=== PATIENT | female | born 1990 | race Caucasian/White ===

== ENCOUNTER 2019-09-03 15:00 | Emergency (ER) | payer BC, SELFPAY ==
[2019-09-03 15:10] VITALS: BP 149/81; PULSE 67; RESP 18; TEMP 37; O2SAT 97; BMI 37.3
[2019-09-03 15:54] LABS: Add Urine Microscopic? NO
[2019-09-03 16:04] LABS: Bilirubin Urine Neg (NEGATIVE); Blood Urine Neg (Negative); Glucose Urine UA Norm (Normal); HCG Qualitative Urine. Negative (Negative); Ketones Urine 2+ (Negative); Nitrate Urine Negative (Negative); Protein Urine Neg (Negative); Sulfosalicylic Acid Urine Negative (Negative); Urine Appearance Clear (CLEAR); Urine Color Yellow (Yellow); Urobilinogen Urine Neg (Negative); pH Urine 5 (5-7)
[2019-09-03 16:05] LABS: Leukocyte Esterase Urine Negative (Negative)
[2019-09-03 16:11] LABS: Basophils % 0.2 %; Eosinophils # 0.1 10^3/uL (0.0-0.8); Eosinophils % 1.4 %; Hemoglobin 14.5 g/dL (11.5-15.3); Lymphocytes # 2.5 10^3/uL (0.8-4.8); Lymphocytes % 29.1 %; Mean Corpuscular Volume 90.9 fL (81-99); Mean Platelet Volume 9.2 fL (7.4-10.4); Monocytes # 0.6 10^3/uL (0.2-0.9); Monocytes % 6.8 %; Neutrophils # 5.4 10^3/uL (1.8-7.7); Neutrophils % 62.2 %; Nucleated Red Blood Cells % 0 %; Platelet Count 298 10^3/cmm (130-400); Red Blood Count 4.84 10^6/uL (4.1-5.3); Red Cell Distribution Width 13.2 % (12.1-15.1); White Blood Count 8.7 10^3/uL (4.0-10.0)
[2019-09-03 16:12] LABS: Amphetamines Screen Urine Negative (Negative); Barbiturates Screen Urine Negative (Negative); Benzodiazepines Screen Urine Negative (Negative); Cocaine Screen Urine Negative (Negative); Opiate Screen Urine Negative (Negative); PCP Screen Urine Negative (Negative); THC Screen Urine Negative (Negative)
[2019-09-03 16:47] LABS: Alanine Aminotransferase 18 U/L (0-33); Albumin Level 4.3 g/dL (3.5-5.2); Alkaline Phosphatase 77 IU/L (35-105); Anion Gap 17.8 (5-19); Aspartate Amino Transferase 18 U/L (0-32); Blood Urea Nitrogen 11 mg/dL (6-20); Carbon Dioxide 19 mmol/L (22-29); Chloride 104 mmol/L (98-107); Globulin 2.8 g/dL (1.3-4.6); Glucose 92 mg/dL (65-115); Osmolality Calculated 280 mOsm/kg (285-295); Potassium 3.8 mmol/L (3.5-5.1); Sodium 137 mmol/L (136-145); Thyroid Stimulating Hormone 0.95 uIU/mL (0.27-4.20); Total Bilirubin 0.3 mg/dL (0.15-1.2); Total Protein 7.1 g/dL (6.6-8.7)
[2019-09-03 16:49] LABS: Acetaminophen < 5.0 ug/mL (10-30); Alcohol Level < 10 mg/dL (0-10); Salicylate < 0.3 mg/dL (3-10)
--- NOTE | 2019-09-03 17:54 | W.ED.AMS ---
HPI - Altered Mental Status General: Chief Complaint: Altered Mental Status Stated Complaint: AMS/STARTED NEW MED Time Seen by Provider: 09/03/19 15:32 Source: patient and other (friend) Mode of arrival: ambulatory Limitations: altered mental status History of Present Illness: HPI narrative: The patient is a 28-year-old female patient with a history of depression who was started on Prozac about a week ago. At about the same time she also started taking truvision, a weight loss supplement which contains caffeine and other ingredients. She states that she is taking the extra strength one which is apparently more powerful. She denies recreational drug use. She denies any recent illness, no headache, no vomiting, no fever, no sick contacts. She has not had similar symptoms in the past. The patient appears distracted but it is easy to get her attention. Her coworkers noticed this and so called for her friend to bring her to the hospital for evaluation. The patient states that she has not slept in 2 days, possibly from the diet supplements MD complaint: confusion Onset (ago): hour(s) Associated symptoms: Reports depression; Deny auditory hallucinations, visual hallucinations, delusions, homicidal ideation, racing thoughts or suicidal ideation Review of Systems General: Reports: 10 or more systems reviewed and unremarkable except in HPI and below Const: Denies: fever(s), chills or body aches Eyes: Denies: change in vision or blurry vision ENMT: Denies: throat pain, enlarged tonsils, odynophagia, hoarseness, mouth pain or swelling of lips/tongue Card: Denies: chest pain, palpitations, irregular heart rhythm, edema or swelling of feet/ankles Resp: Denies: dyspnea, productive cough or non-productive cough GI: Denies: abdominal pain, nausea or vomiting : Denies: flank pain, difficulty voiding, dysuria, urinary frequency, urinary urgency or urinary hesitancy Musc: Denies: neck pain, back pain or extremity swelling Skin/Breast: Denies: rash, pruritus or erythema Neuro: Reports: confusion; Denies: headache(s), numbness in extremities or weakness in extremities Psych: Reports: depression; Denies: visual hallucinations, auditory hallucinations, suicidal ideation or homicidal ideation Endo: Denies: polyuria, polydipsia or tired all the time PFSH ED PFSH: Social History Smoking and tobacco status: current every day smoker Female Reproductive History: Date of last menstrual period: 08/03/19 Physical Exam Const: COMMON NORMALS: no acute distress, average body habitus, patient oriented x3, no limitations, healthy appearing, alert and well nourished HENMT: COMMON NORMALS: normocephalic, atraumatic and moist oral mucous membranes HEAD & SCALP: normocephalic and atraumatic Eye: COMMON NORMALS: Equal, round and reactive pupils present, EOMs intact bilaterally, conjunctivae normal and no scleral icterus CONJUNCTIVA: Yes conjunctivae normal PUPIL: Yes Equal, round and reactive pupils present Neck/C-Spine: COMMON NORMALS: full ROM, supple, no meningeal signs, no JVD and No carotid bruits Chest: COMMONS NORMALS: normal inspection of the chest and normal palpation of entire chest wall Resp: COMMON NORMALS: normal respiratory effort, No retractions, No use of accessory muscles, clear to auscultation bilaterally and percussion normal AUSCULTATION: clear to auscultation bilaterally PERCUSSION: percussion normal Cardio: COMMON NORMALS: no JVD, regular rate, regular rhythm, S1 normal heart sound present, S2 normal heart sound present, No gallops present (Cardio), No clicks present (Cardio), No murmurs present (Cardio), No rub (Cardio) and Peripheral pulses 2+ throughout RATE: regular rate RHYTHM: regular rhythm HEART SOUNDS: S1 normal heart sound present and S2 normal heart sound present PERIPHERAL PULSES: Peripheral pulses 2+ throughout GI: COMMON NORMALS: Normal to inspection, nondistended, normoactive bowel sounds present, Soft to palpation, non-tender, No hepatosplenomegaly present, no masses and no bruits PALPATION: Yes Soft to palpation and Yes No hepatosplenomegaly present : COMMON NORMALS: Yes no CVA tenderness BLADDER/KIDNEY EXAM: Yes no CVA tenderness Back/Pelvis: COMMON NORMALS: no CVA tenderness Extremity: COMMON NORMALS: normal to inspection, full ROM, capillary refill normal, no calf tenderness and no pedal edema Neuro: COMMON NORMALS: patient oriented x3 SENSORIUM/ORIENTATION: Yes alert MENINGEAL SIGNS: Yes no meningeal signs Psych: THOUGHT CONTENT: No delusions Skin: COMMON NORMALS: no rashes or lesions noted, no wounds, turgor normal, no jaundice, no petechiae and no mottling GENERAL SKIN EXAM: no rashes or lesions noted and turgor normal Course Reevaluation(s): Reevaluation #1: Patient seen. Symptoms have resolved completely. The patient is alert and oriented. She states that she cannot remember anything from when she got to work today. She does remember that she has not slept in 2 days. Discussed her lab findings with her. Essentially normal. She is advised to stop taking the diet supplements, Truvision. She is also advised to follow-up with her primary care provider as soon as she can get in to see him within 3 days. She voiced understanding and is in agreement with the plan Time: 17:45 Vital Signs: Vital signs: Vital Signs Temperature 98.6 F 09/03/19 15:10 Pulse Rate 71 09/03/19 18:14 Respiratory Rate 18 09/03/19 18:14 Blood Pressure 114/88 09/03/19 18:14 Pulse Oximetry 98 09/03/19 18:14 MDM - Altered Mental Status MDM Narrative: Medical decision making narrative: 28-year-old female patient who presents to the emergency department with confusion. Evaluation is unremarkable and she appears to have delirium induced by sleep deprivation. She may have been sleep deprived secondary to her dietary supplements. She is advised to stop the dietary supplements and to follow-up with her primary care provider. This may also be an adverse reaction to her antidepressant. Medical Records: Attestation: I reviewed the patient's medical records. Lab Data: Attestation: I reviewed the patient's lab results. Labs: Lab Results 09/03/19 09/03/19 09/03/19 Range/Units 15:50 15:50 15:50 WBC (4.0-10.0) 10^3/ uL RBC (4.1-5.3) 10^6/u L Hgb (11.5-15.3) g/dL Hct (37.0-47.0) % MCV (81-99) fL MCH (28.0-34.0) pg MCHC (30.0-36.0) g/dL RDW (12.1-15.1) % Plt Count (130-400) 10^3/c mm MPV (7.4-10.4) fL Neut % (Auto) % Lymph % (Auto) % Trinity % (Auto) % Eos % (Auto) % Baso % (Auto) % Neut # (Auto) (1.8-7.7) 10^3/u L Lymph # (Auto) (0.8-4.8) 10^3/u L Trinity # (Auto) (0.2-0.9) 10^3/u L Eos # (Auto) (0.0-0.8) 10^3/u L Baso # (Auto) (0.0-0.1) 10^3/u L Nucleated RBC % (a uto) % Nucleated RBCs # /100WBC Sodium (136-145) mmol/L Potassium (3.5-5.1) mmol/L Chloride (98-107) mmol/L Carbon Dioxide (22-29) mmol/L Anion Gap (5-19) BUN (6-20) mg/dL Creatinine (0.5-0.9) mg/dL GFR Calculation (90-130) mL/min Glucose (65-115) mg/dL Calculated Osmolal ity (285-295) mOsm/k g Calcium (8.5-10.5) mg/dL Total Bilirubin (0.15-1.2) mg/dL AST (0-32) U/L ALT (0-33) U/L Alkaline Phosphata se (35-105) IU/L Total Protein (6.6-8.7) g/dL Albumin (3.5-5.2) g/dL Globulin (1.3-4.6) g/dL TSH (0.27-4.20) uIU/ mL HCG, Qual Negative (Negative) Urine Color Yellow (Yellow) Urine Appearance Clear (CLEAR) Urine pH 5 (5-7) Ur Specific Gravit y 1.020 (1.005-1.030) Urine Protein Neg (Negative) Urine Glucose (UA) Norm (Normal) Urine Ketones 2+ H (Negative) Urine Blood Neg (Negative) Urine Nitrate Negative (Negative) Urine Bilirubin Neg (NEGATIVE) Prot Sulfosalicyli c Acd Negative (Negative) Urine Urobilinogen Neg (Negative) mg/dL Ur Leukocyte Esther ase Negative (Negative) Salicylates (3-10) mg/dL Urine Opiates Scre en Negative (Negative) ng/mL Acetaminophen (10-30) ug/mL Ur Barbiturates Sc reen Negative (Negative) ng/mL Ur Phencyclidine S crn Negative (Negative) ng/mL Ur Amphetamines Sc reen Negative (Negative) ng/mL U Benzodiazepines Scrn Negative (Negative) ng/mL Urine Cocaine Scre en Negative (Negative) ng/mL U Marijuana (THC) Screen Negative (Negative) ng/mL Ethyl Alcohol (0-10) mg/dL 09/03/19 09/03/19 Range/Units 16:05 16:05 WBC 8.7 (4.0-10.0) 10^3/ uL RBC 4.84 (4.1-5.3) 10^6/u L Hgb 14.5 (11.5-15.3) g/dL Hct 44.0 (37.0-47.0) % MCV 90.9 (81-99) fL MCH 30.0 (28.0-34.0) pg MCHC 33.0 (30.0-36.0) g/dL RDW 13.2 (12.1-15.1) % Plt Count 298 (130-400) 10^3/c mm MPV 9.2 (7.4-10.4) fL Neut % (Auto) 62.2 % Lymph % (Auto) 29.1 % Trinity % (Auto) 6.8 % Eos % (Auto) 1.4 % Baso % (Auto) 0.2 % Neut # (Auto) 5.4 (1.8-7.7) 10^3/u L Lymph # (Auto) 2.5 (0.8-4.8) 10^3/u L Trinity # (Auto) 0.6 (0.2-0.9) 10^3/u L Eos # (Auto) 0.1 (0.0-0.8) 10^3/u L Baso # (Auto) 0.0 (0.0-0.1) 10^3/u L Nucleated RBC % (a uto) 0 % Nucleated RBCs # 0.0 /100WBC Sodium 137 (136-145) mmol/L Potassium 3.8 (3.5-5.1) mmol/L Chloride 104 (98-107) mmol/L Carbon Dioxide 19 L (22-29) mmol/L Anion Gap 17.8 (5-19) BUN 11 (6-20) mg/dL Creatinine 0.5 (0.5-0.9) mg/dL GFR Calculation 148.0 H (90-130) mL/min Glucose 92 (65-115) mg/dL Calculated Osmolal ity 280 L (285-295) mOsm/k g Calcium 9.0 (8.5-10.5) mg/dL Total Bilirubin 0.3 (0.15-1.2) mg/dL AST 18 (0-32) U/L ALT 18 (0-33) U/L Alkaline Phosphata se 77 (35-105) IU/L Total Protein 7.1 (6.6-8.7) g/dL Albumin 4.3 (3.5-5.2) g/dL Globulin 2.8 (1.3-4.6) g/dL TSH 0.95 (0.27-4.20) uIU/ mL HCG, Qual (Negative) Urine Color (Yellow) Urine Appearance (CLEAR) Urine pH (5-7) Ur Specific Gravit y (1.005-1.030) Urine Protein (Negative) Urine Glucose (UA) (Normal) Urine Ketones (Negative) Urine Blood (Negative) Urine Nitrate (Negative) Urine Bilirubin (NEGATIVE) Prot Sulfosalicyli c Acd (Negative) Urine Urobilinogen (Negative) mg/dL Ur Leukocyte Esther ase (Negative) Salicylates < 0.3 L (3-10) mg/dL Urine Opiates Scre en (Negative) ng/mL Acetaminophen < 5.0 L (10-30) ug/mL Ur Barbiturates Sc reen (Negative) ng/mL Ur Phencyclidine S crn (Negative) ng/mL Ur Amphetamines Sc reen (Negative) ng/mL U Benzodiazepines Scrn (Negative) ng/mL Urine Cocaine Scre en (Negative) ng/mL U Marijuana (THC) Screen (Negative) ng/mL Ethyl Alcohol < 10 (0-10) mg/dL Discharge Plan Discharge Patient Disposition: Home, Self-Care Clinical Impression: Sleep deprivation, Delirium Condition: Stable Prescriptions: Continued fluoxetine 20 mg capsule 20 mg PO DAILY RF: 0 Discharge Orders: Discharge Order (Routine); Ordered 09/03/19 Ordered By: Meir Michaels Referrals: Rafy Klein MD [Family Provider] - 1-3 days Patient Instructions: Acute Delirium (ED) Activity Restrictions/Additional Instructions: Return for any new or worsening symptoms. Follow-up with your primary care provider as soon as you can get in. Stop taking the truvision as it may be responsible for your lack of sleep, and I believe your lack of sleep is responsible for your symptoms that you had today. Drink plenty of fluids to keep well-hydrated. Discharge Date/Time: 09/03/19 18:14 Coding Level of Care Code ED Computer Animator for Zoila Andrade
[2019-09-03 18:14] VITALS: BP 114/88; PULSE 71; RESP 18; O2SAT 98
== END 2019-09-03 18:14 | disposition home or self-care (01) ==
PROVIDERS: Emergency Provider Family Medicine; Family Provider Family Medicine
DX: Z72.820 Sleep deprivation (principal); R41.0 Disorientation, unspecified; F17.210 Nicotine dependence, cigarettes, uncomplicated
CPT/HCPCS: 12345; 36415; 80053; 80306; 80307; 81003; 81025; 84443; 85025; 99282

== ENCOUNTER 2020-11-21 14:00 | Emergency (ER) | payer BC, MEDICAID, SELFPAY ==
[2020-11-21 14:25] VITALS: BP 119/79; PULSE 76; RESP 19; TEMP 36.7; O2SAT 94
[2020-11-21 14:47] LABS: Bilirubin Urine Neg (Negative); Blood Urine Trace (Negative); Glucose Urine UA Norm (Normal); Ketones Urine Negative (Negative); Nitrate Urine Negative (Negative); Protein Urine Neg (Negative); Specific Gravity, Urine 1.015 (1.005-1.030); Urine Appearance Clear (CLEAR); Urine Color Straw (Yellow); pH Urine 5 (5-7)
[2020-11-21 14:48] LABS: Add Urine Culture? No; Bacteria Urine 1+ /hpf; Leukocyte Esterase Urine Negative (Negative); Mucus Urine TRACE /hpf; RBC Urine 0-4 /hpf (0-2); Squamous Epithelial Cell Urine 0-4 /hpf (0-5); Urobilinogen Urine Norm (Negative)
[2020-11-21 19:33] LABS: Basophils % 0.3 %; Eosinophils # 0.2 10^3/uL (0.0-0.8); Eosinophils % 2.4 %; Hematocrit 43.4 % (37.0-47.0); Hemoglobin 14.3 g/dL (11.5-15.3); Lymphocytes # 2.9 10^3/uL (0.8-4.8); Lymphocytes % 30.7 %; Mean Corpuscular HGB Conc 32.9 g/dL (30.0-36.0); Mean Corpuscular Hemoglobin 28.7 pg (28.0-34.0); Mean Corpuscular Volume 87.1 fl (81-99); Mean Platelet Volume 8.7 fL (7.4-10.4); Monocytes # 0.5 10^3/uL (0.2-0.9); Monocytes % 5.3 %; Neutrophils # 5.82 10^3/uL (1.8-7.7); Nucleated Red Blood Cells % 0 %; Platelet Count 313 10^3/cmm (130-400); Red Blood Count 4.98 10^6/uL (4.1-5.3); Red Cell Distribution Width 13.2 % (12.1-15.1); White Blood Count 9.6 10^3/uL (4.0-10.0)
--- NOTE | 2020-11-21 19:33 | W.ED.FEMALGU ---
HPI - Female Genitourinary General: Chief complaint: Urogenital-Female Stated complaint: positive test, cramping, bleeding Time Seen by Provider: 11/21/20 19:22 History of Present Illness: HPI Narrative: Patient comes in today for complaints of vaginal bleeding. Patient is about 6 to 7 weeks . Patient found out she was last week with a home test. Patient reports she started cramping last night and then started having some bleeding this morning. Patient reports bleeding was heavy at first but has lightened up. Patient does report bleeding as red. Patient does have a history of prior miscarriages. Patient has had 5 miscarriages and one live with a total of 6 pregnancies. Patient appears alert oriented and in no acute distress. MD elicited complaint: vaginal bleeding Date of Last Menstrual Period: 10/02/20 Review of Systems General: Reports: 10 or more systems reviewed and unremarkable except in HPI and below : Reports: vaginal bleeding PFSH ED PFSH: Social History Smoking and tobacco status: current every day smoker Female Reproductive History: Date of last menstrual period: 10/02/20 Physical Exam Const: COMMON NORMALS: no acute distress and patient oriented x3 GENERAL APPEARANCE: cooperative HENMT: COMMON NORMALS: normocephalic, TM's normal bilaterally and Normal external nose present HEAD & SCALP: normal to inspection and normocephalic NOSE: Normal external nose present TYMPANIC MEMBRANE: TM's normal bilaterally MOUTH: Normal oral and palatal mucosa present THROAT: posterior oropharynx normal Eye: GENERAL EYE: appearance normal, both eyes and all related structures Neck/C-Spine: COMMON NORMALS: full ROM Lymph: LYMPHATIC: no lymphadenopathy noted Chest: COMMONS NORMALS: normal inspection of the chest Resp: COMMON NORMALS: normal respiratory effort EFFORT & INSPECTION: Yes able to speak in complete sentences Cardio: COMMON NORMALS: regular rate and regular rhythm RATE: regular rate RHYTHM: regular rhythm GI: COMMON NORMALS: non-tender : COMMON NORMALS: Yes no CVA tenderness BLADDER/KIDNEY EXAM: Yes no CVA tenderness Back/Pelvis: COMMON NORMALS: no CVA tenderness and thoracic and lumbar spine normal to inspection Extremity: COMMON NORMALS: normal to inspection Neuro: COMMON NORMALS: patient oriented x3 and moves all extremities Psych: COMMON NORMALS: mental status grossly normal and cooperative Skin: COMMON NORMALS: no rashes or lesions noted GENERAL SKIN EXAM: no rashes or lesions noted Course Vital Signs: Vital signs: Vital Signs Temperature 98.1 F 11/21/20 14:25 Pulse Rate 76 11/21/20 14:25 Respiratory Rate 19 H 11/21/20 14:25 Blood Pressure 119/79 11/21/20 14:25 Pulse Oximetry 94 11/21/20 14:25 MDM - Female MDM Narrative: Medical decision making narrative: Patient comes in today for complaints of abnormal bleeding. Patient had a positive test 1 week ago. Patient had figured that she was 6 to 7 weeks. Patient reports today had a large clot with tissue in and has had bleeding throughout the day. Patient reports the bleeding has decreased this evening. Patient appears well. Vital signs are normal. Respirations are even lungs are clear to auscultation. Differential diagnosis includes spontaneous miscarriage, UTI, abruptio placentae. hCG level is less than 0.5. Laboratory values otherwise were unremarkable. Reviewed exam with patient with recommendations for monitoring bleeding follow-up as needed. Patient reported understanding and agreed to plan. Lab Data: Labs: Lab Results 11/21/20 11/21/20 11/21/20 Range/Units 14:13 19:25 19:25 WBC 9.6 (4.0-10.0) 10^3/ uL RBC 4.98 (4.1-5.3) 10^6/u L Hgb 14.3 (11.5-15.3) g/dL Hct 43.4 (37.0-47.0) % MCV 87.1 (81-99) fl MCH 28.7 (28.0-34.0) pg MCHC 32.9 (30.0-36.0) g/dL RDW 13.2 (12.1-15.1) % Plt Count 313 (130-400) 10^3/c mm MPV 8.7 (7.4-10.4) fL Neut % (Auto) 61.0 % Lymph % (Auto) 30.7 % Liberty % (Auto) 5.3 % Eos % (Auto) 2.4 % Baso % (Auto) 0.3 % Neut # (Auto) 5.82 (1.8-7.7) 10^3/u L Lymph # (Auto) 2.9 (0.8-4.8) 10^3/u L Liberty # (Auto) 0.5 (0.2-0.9) 10^3/u L Eos # (Auto) 0.2 (0.0-0.8) 10^3/u L Baso # (Auto) 0.0 (0.0-0.1) 10^3/u L Nucleated RBC % (a uto) 0 % Nucleated RBCs # 0.0 /100WBC Sodium 137 (136-145) mmol/L Potassium 3.8 (3.5-5.1) mmol/L Chloride 103 (98-107) mmol/L Carbon Dioxide 23 (22-29) mmol/L Anion Gap 14.8 (5-19) BUN 10 (6-20) mg/dL Glucose 96 (65-115) mg/dL Calcium 8.7 (8.5-10.5) mg/dL Total Bilirubin 0.3 (0.15-1.2) mg/dL AST 18 (0-32) U/L ALT 21 (0-33) U/L Alkaline Phosphata se 94 (35-105) IU/L Total Protein 7.6 (6.6-8.7) g/dL Albumin 4.0 (3.5-5.2) g/dL Globulin 3.6 (1.3-4.6) g/dL Ser , Yaneli i-Qnt 0.50 mIU/mL Urine Color Straw (Yellow) Urine Appearance Clear (CLEAR) Urine pH 5 (5-7) Ur Specific Gravit y 1.015 (1.005-1.030) Urine Protein Neg (Negative) Urine Glucose (UA) Norm (Normal) Urine Ketones Negative (Negative) Urine Blood Trace H (Negative) Urine Nitrate Negative (Negative) Urine Bilirubin Neg (Negative) Urine Urobilinogen Norm (Negative) mg/dL Ur Leukocyte Esther ase Negative (Negative) Urine RBC 0-4 H (0-2) /hpf Urine WBC Not Reportable Ur Squamous Epith Cells 0-4 H (0-5) /hpf Amorphous Sediment Not Reportable Urine Bacteria 1+ H (NONE) /hpf Urine Mucus Trace /hpf Discharge Plan Discharge Patient Disposition: Home Clinical Impression: Spontaneous miscarriage Condition: Stable Prescriptions: No Action fluoxetine 20 mg capsule 20 mg PO DAILY RF: 0 Discharge Orders: Discharge ED (Routine); Ordered 11/21/20 Ordered By: Gutierrez Castaneda Referrals: Rafy Klein MD [Primary Care Provider] - Discharge Diet: Usual diet Discharge Activity: Increase activity as tolerated Patient Instructions: Spontaneous Miscarriage (ED), Opioid Safety Activity Restrictions/Additional Instructions: Home and rest. Monitor bleeding for greater than 1 pad an hour. Monitor for high fever. Drink plenty of water. Follow-up with primary care in next 2 to 3 days for recheck. Coding Level of Care Code ED Security Operations Specialist for Chg Fwd Exam Comprehensive
[2020-11-21 20:10] LABS: Alanine Aminotransferase 21 U/L (0-33); Alkaline Phosphatase 94 IU/L (35-105); Anion Gap 14.8 (5-19); Aspartate Amino Transferase 18 U/L (0-32); Blood Urea Nitrogen 10 mg/dL (6-20); Calcium 8.7 mg/dL (8.5-10.5); Carbon Dioxide 23 mmol/L (22-29); Chloride 103 mmol/L (98-107); Globulin 3.6 g/dL (1.3-4.6); Glomerular Filtration Rate 188.7 mL/min (90-130); Glucose 96 mg/dL (65-115); Osmolality Calculated 283 mOsm/kg (285-295); Potassium 3.8 mmol/L (3.5-5.1); Sodium 137 mmol/L (136-145); Total Bilirubin 0.3 mg/dL (0.15-1.2); Total Protein 7.6 g/dL (6.6-8.7)
[2020-11-21 20:21] VITALS: PULSE 78; RESP 16; O2SAT 98
== END 2020-11-21 20:21 | disposition home or self-care (01) ==
PROVIDERS: Physician Assistant; Emergency Provider Nurse Practitioner Family; PCP Family Medicine
DX: O03.9 Complete or unspecified spontaneous abortion without complication (principal); O99.331 Smoking (tobacco) complicating pregnancy, first trimester; F17.200 Nicotine dependence, unspecified, uncomplicated
CPT/HCPCS: 36415; 80053; 81001; 84702; 85025; 99282

== ENCOUNTER 2021-03-28 15:04 | Emergency (ER) | payer BC, MEDICAID, SELFPAY ==
--- NOTE | 2021-03-28 15:06 | US_ITS ---
WS: [id number] ULTRASOUND PELVIS TECHNIQUE: Transabdominal and transvaginal. CLINICAL INFORMATION: ; L sided pain LMP: 02/08/2021 : No. COMPARISON: None. FINDINGS: Uterus Orientation: Anteverted. Size: 4.8 cm x 8.3 cm x 5.6 cm. Masses: None. Cervix: Normal Endometrium: Thickened Endometrium thickness: 17 mm. Adnexa: Right corpus luteum cyst measuring 1.9 x 1.5 x1.6 cm. Right ovary size: 2.6 cm x 3.5 cm x 3.4 cm. Right ovary volume: 15.9 ccm3. Left ovary size: 1.5 cm x 1.8 cm x 1.8 cm. Left ovary volume: 2.5 ccm3 Free fluid: None. Other findings: None. US/US pelvic with transvaginal IMPRESSION: 1. No visualized intrauterine gestational sac. 2. Thickened endometrium measuring 17 mm. 3. Both ovaries are normal in appearance. Right corpus luteum cyst measuring 1 .9 x 1.5 x1.6 cm. 4. No free fluid in the cul-de-sac.
[2021-03-28 15:18] VITALS: BP 136/84; PULSE 108; RESP 20; TEMP 37.2; O2SAT 99; BMI 50.1
[2021-03-28 16:59] LABS: Basophils % 0.2 %; Eosinophils # 0.1 10^3/uL (0.0-0.8); Eosinophils % 1.3 %; Hematocrit 41.4 % (37.0-47.0); Hemoglobin 13.4 g/dL (11.5-15.3); Lymphocytes # 2.6 10^3/uL (0.8-4.8); Lymphocytes % 27.8 %; Mean Corpuscular HGB Conc 32.4 g/dL (30.0-36.0); Mean Corpuscular Volume 86.6 fl (81-99); Mean Platelet Volume 8.8 fL (7.4-10.4); Monocytes # 0.7 10^3/uL (0.2-0.9); Monocytes % 7.5 %; Neutrophils # 5.95 10^3/uL (1.8-7.7); Neutrophils % 62.8 %; Nucleated Red Blood Cells % 0 %; Platelet Count 389 10^3/cmm (130-400); Red Blood Count 4.78 10^6/uL (4.1-5.3); Red Cell Distribution Width 13.9 % (12.1-15.1); White Blood Count 9.5 10^3/uL (4.0-10.0)
[2021-03-28 17:21] VITALS: BP 132/81; PULSE 100; RESP 16; O2SAT 99
[2021-03-28 17:21] LABS: Alanine Aminotransferase 21 U/L (0-33); Albumin Level 3.9 g/dL (3.5-5.2); Alkaline Phosphatase 80 IU/L (35-105); Anion Gap 17.6 (5-19); Aspartate Amino Transferase 17 U/L (0-32); Blood Urea Nitrogen 8 mg/dL (6-20); Calcium 8.6 mg/dL (8.5-10.5); Carbon Dioxide 19 mmol/L (22-29); Chloride 105 mmol/L (98-107); Globulin 3.2 g/dL (1.3-4.6); Glomerular Filtration Rate 145.9 mL/min (90-130); Glucose 87 mg/dL (65-115); Osmolality Calculated 284 mOsm/kg (285-295); Potassium 3.6 mmol/L (3.5-5.1); Sodium 138 mmol/L (136-145); Total Bilirubin 0.3 mg/dL (0.15-1.2); Total Protein 7.1 g/dL (6.6-8.7)
[2021-03-28 17:31] LABS: Add Urine Microscopic? NO; Charge for UA Resulting for Rev
[2021-03-28 17:39] LABS: Bilirubin Urine Neg (Negative); Blood Urine Neg (Negative); Glucose Urine UA Norm (Normal); Ketones Urine 2+ (Negative); Leukocyte Esterase Urine Negative (Negative); Nitrate Urine Negative (Negative); Protein Urine Neg (Negative); Urine Appearance Clear (CLEAR); Urine Color Yellow (Yellow); Urobilinogen Urine 1 mg/dL (Negative); pH Urine 6.5 (5-7)
--- NOTE | 2021-03-28 18:05 | ED_ITS ---
HPI - Female Genitourinary General: Chief complaint: Urogenital-Female Stated complaint: 7 WKS PREG/VAGINAL & L ABD PAIN Time Seen by Provider: 03/28/21 16:54 History of Present Illness: HPI Narrative: Pt comes in c/o LLQ abd pain which she describes as sharp, constant, worse with movement, started yesterday. States that she thought initially she might have a UTI but that it doesn't hurt to urinate. Denies fever, cough, congestion. States that she had a positive home preg test and that her LMP was about 7 weeks ago. Associated symptoms: Reports abdominal pain; Deny headache(s) or nausea Date of Last Menstrual Period: 10/02/20 Review of Systems Const: Denies: fever(s) or body aches Eyes: Denies: change in vision or blurry vision ENMT: Denies: throat pain or odynophagia Card: Denies: chest pain or palpitations Resp: Denies: dyspnea or productive cough GI: Reports: abdominal pain; Denies: nausea or vomiting : Denies: flank pain or dysuria Musc: Denies: neck pain or back pain Skin/Breast: Denies: rash or pruritus Neuro: Denies: headache(s) or numbness in extremities Psych: Denies: anxiety or change in appetite Endo: Denies: polyuria or excessive sweating PFSH ED PFSH: Social History Smoking and tobacco status: current every day smoker Female Reproductive History: Date of last menstrual period: 10/02/20 Physical Exam Const: COMMON NORMALS: no acute distress, patient oriented x3, healthy appearing and alert HENMT: COMMON NORMALS: normocephalic and atraumatic HEAD & SCALP: normocephalic and atraumatic Eye: COMMON NORMALS: Equal, round and reactive pupils present and EOMs intact bilaterally PUPIL: Yes Equal, round and reactive pupils present Neck/C-Spine: COMMON NORMALS: full ROM and supple Resp: COMMON NORMALS: normal respiratory effort, No retractions and No use of accessory muscles Cardio: COMMON NORMALS: regular rate and regular rhythm RATE: regular rate RHYTHM: regular rhythm GI: COMMON NORMALS: Normal to inspection, nondistended, normoactive bowel sounds present, Soft to palpation and non-tender PALPATION: Yes Soft to palpation Back/Pelvis: COMMON NORMALS: thoracic and lumbar spine normal to inspection and no thoracic nor lumbar tenderness Extremity: COMMON NORMALS: normal to inspection and full ROM Neuro: COMMON NORMALS: patient oriented x3 SENSORIUM/ORIENTATION: Yes alert Psych: COMMON NORMALS: mental status grossly normal and cooperative Skin: COMMON NORMALS: no rashes or lesions noted and no wounds GENERAL SKIN EXAM: no rashes or lesions noted Course ED course: Pt comes in with concerns for LLQ abd pain that started yesterday. States that she is and around 7 weeks along. Denies vaginal bleeding or discharge. will check labs, u/s, and re assess. Reevaluation(s): Reevaluation #1: on reassessment I talked to the pt about the test results. will have her f/u with her OB in two days to repeat the beta quant. will d/c at this time with precautions to return for worsening or changing symptoms. Vital Signs: Vital signs: Vital Signs Temperature 99.0 F 03/28/21 15:18 Pulse Rate 100 03/28/21 17:21 Respiratory Rate 16 03/28/21 17:21 Blood Pressure 132/81 03/28/21 17:21 Pulse Oximetry 99 03/28/21 17:21 MDM - Female Lab Data: Labs: Lab Results 03/28/21 03/28/21 03/28/21 15:59 16:37 16:37 WBC 9.5 10^3/uL 10^3/ uL (4.0-10.0) RBC 4.78 10^6/uL 10^6 /uL (4.1-5.3) Hgb 13.4 g/dL g/dL (11.5-15.3) Hct 41.4 % % (37.0-47.0) MCV 86.6 fl fl (81-99) MCH 28.0 pg pg (28.0-34.0) MCHC 32.4 g/dL g/dL (30.0-36.0) RDW 13.9 % % (12.1-15.1) Plt Count 389 10^3/cmm 10^3 /cmm (130-400) MPV 8.8 fL fL (7.4-10.4) Neut % (Auto) 62.8 % % Lymph % (Auto) 27.8 % % Lares % (Auto) 7.5 % % Eos % (Auto) 1.3 % % Baso % (Auto) 0.2 % % Neut # (Auto) 5.95 10^3/uL 10^3 /uL (1.8-7.7) Lymph # (Auto) 2.6 10^3/uL 10^3/ uL (0.8-4.8) Lares # (Auto) 0.7 10^3/uL 10^3/ uL (0.2-0.9) Eos # (Auto) 0.1 10^3/uL 10^3/ uL (0.0-0.8) Baso # (Auto) 0.0 10^3/uL 10^3/ uL (0.0-0.1) Nucleated RBC % (a uto) 0 % % Nucleated RBCs # 0.0 /100WBC /100W BC Sodium 138 mmol/L mmol/L (136-145) Potassium 3.6 mmol/L mmol/L (3.5-5.1) Chloride 105 mmol/L mmol/L (98-107) Carbon Dioxide 19 mmol/L L mmol/ L (22-29) Anion Gap 17.6 (5-19) BUN 8 mg/dL mg/dL (6-20) Creatinine 0.5 mg/dL mg/dL (0.5-0.9) GFR Calculation 145.9 mL/min H mL /min (90-130) Glucose 87 mg/dL mg/dL (65-115) Calculated Osmolal ity 284 mOsm/kg L mOs m/kg (285-295) Calcium 8.6 mg/dL mg/dL (8.5-10.5) Total Bilirubin 0.3 mg/dL mg/dL (0.15-1.2) AST 17 U/L U/L (0-32) ALT 21 U/L U/L (0-33) Alkaline Phosphata se 80 IU/L IU/L (35-105) Total Protein 7.1 g/dL g/dL (6.6-8.7) Albumin 3.9 g/dL g/dL (3.5-5.2) Globulin 3.2 g/dL g/dL (1.3-4.6) Ser , Yaneli i-Qnt 1560.00 mIU/mL mI U/mL Urine Color Yellow (Yellow) Urine Appearance Clear (CLEAR) Urine pH 6.5 (5-7) Ur Specific Gravit y 1.020 (1.005-1.030) Urine Protein Neg (Negative) Urine Glucose (UA) Norm (Normal) Urine Ketones 2+ H (Negative) Urine Blood Neg (Negative) Urine Nitrate Negative (Negative) Urine Bilirubin Neg (Negative) Urine Urobilinogen 1 mg/dL H mg/dL (Negative) Ur Leukocyte Esther ase Negative (Negative) Discharge Plan Discharge Patient Disposition: Home Clinical Impression: Early stage of Abdominal pain Qualifiers: Abdominal location: left lower quadrant Qualified Code(s): R10.32 - Left lower quadrant pain Condition: Stable Prescriptions: No Action fluoxetine 20 mg capsule 20 mg PO DAILY RF: 0 Discharge Orders: Discharge ED (Routine); Ordered 03/28/21 Ordered By: Rafy Parker Referrals: Rafy Klein MD [Primary Care Provider] - Patient Instructions: Abdominal Pain (ED) Coding Level of Care Code ED Perforating Machine Operator for Zoila Andrade
[2021-03-28 18:08] VITALS: BP 132/81; PULSE 100; RESP 16; O2SAT 99
== END 2021-03-28 18:08 | disposition home or self-care (01) ==
PROVIDERS: Physician Assistant; Emergency Provider Emergency Medicine; PCP Family Medicine
DX: O26.891 Other specified pregnancy related conditions, first trimester (principal); R10.32 Left lower quadrant pain; Z3A.01 Less than 8 weeks gestation of pregnancy; O99.331 Smoking (tobacco) complicating pregnancy, first trimester; F17.210 Nicotine dependence, cigarettes, uncomplicated
CPT/HCPCS: 76830; 76856; 80053; 81003; 84702; 85025; 99283

== ENCOUNTER 2021-03-30 09:46 | Outpatient (CLI) | payer BC, MEDICAID, SELFPAY | END 2021-03-30 09:47 | disposition home or self-care (01) | LOC: LAB 09:49 | PROVIDERS: PCP Family Medicine; Visit Provider Family Medicine | DX: O20.0 Threatened abortion (principal); R10.2 Pelvic and perineal pain | CPT/HCPCS: 36415; 84702 ==

== ENCOUNTER 2021-10-18 16:16 | Outpatient (CLI) | payer BC, MEDICAID, SELFPAY ==
[2021-10-18] VITALS (8 sets, daily range): BP systolic 110–128; BP diastolic 55–69; PULSE 84–91; RESP 17; BMI 50.3
== END 2021-10-18 18:15 | disposition home or self-care (01) ==
LOC: OPOB 16:17 → OBGYN 16:17
PROVIDERS: PCP Family Medicine; Visit Provider Family Medicine
DX: O24.419 Gestational diabetes mellitus in pregnancy, unspecified control (principal); Z3A.00 Weeks of gestation of pregnancy not specified
CPT/HCPCS: 59025

== ENCOUNTER 2021-10-25 15:55 | Outpatient (CLI) | payer BC, MEDICAID, SELFPAY ==
[2021-10-25 16:03] VITALS: RESP 18
[2021-10-25 16:04] VITALS: BMI 50.6
[2021-10-25 16:13] VITALS: BP 141/69; PULSE 83
[2021-10-25 16:31] VITALS: BP 164/86; PULSE 90
--- NOTE | 2021-10-25 16:44 | USR_ITS ---
PROCEDURE INFORMATION: Exam: US Biophysical Profile Without Non-Stress Test Exam date and time: 10/25/2021 4:53 PM Age: 30 years old Clinical indication: Other: Gdm cking baby; ; Patient HX: Scheduled for c section on 11-18-2021; Additional info: Bpp due to gdm TECHNIQUE: Imaging protocol: US biophysical profile without non-stress testing. COMPARISON: US OB >= 14 weeks fetus [id number] 07/17/2021 1:20 PM FINDINGS: heart rate: 147 bpm Presentation: Cephalic Placenta: Anterior grade 2 placenta. Amniotic fluid: Amniotic fluid volume is normal. Amniotic fluid index: ONEIL is 15.6 cm. BIOPHYSICAL PROFILE: breathing movement (BPP): 2/2 body movement (BPP): 2/2 tone (BPP): 2/2 Amniotic fluid (BPP): 2/2 Biophysical profile score (BPP): 8/8 MATERNAL ANATOMY: Cervix: Cervical length measures 5 cm. US/US OB BPP wo NST [id number] IMPRESSION: 1. Biophysical profile score is 8/8. 2. Cervical length is 5 cm.
[2021-10-25 17:01] VITALS: BP 122/59; PULSE 98
[2021-10-25 17:16] VITALS: BP 123/63; PULSE 92
[2021-10-25 17:24] VITALS: BP 123/63; PULSE 92; RESP 18
== END 2021-10-25 17:16 | disposition home or self-care (01) ==
LOC: OPOB 15:59 → OBGYN 16:00
PROVIDERS: PCP Family Medicine; Visit Provider Family Medicine
DX: O24.419 Gestational diabetes mellitus in pregnancy, unspecified control (principal); Z3A.00 Weeks of gestation of pregnancy not specified
CPT/HCPCS: 59025; 76819

== ENCOUNTER 2021-11-01 17:50 | Outpatient (CLI) | payer BC, MEDICAID, SELFPAY ==
[2021-11-01 17:50] VITALS: BMI 50.6
[2021-11-01 18:03] VITALS: BP 124/87; PULSE 80
[2021-11-01 18:23] VITALS: BP 123/68; PULSE 81
[2021-11-01 19:28] VITALS: BP 123/68; PULSE 81; RESP 18
== END 2021-11-01 18:40 | disposition home or self-care (01) ==
LOC: OPOB 17:57 → OBGYN 17:58
PROVIDERS: PCP Family Medicine; Visit Provider Family Medicine
DX: O24.419 Gestational diabetes mellitus in pregnancy, unspecified control (principal); Z3A.00 Weeks of gestation of pregnancy not specified
CPT/HCPCS: 59025; 99211

== ENCOUNTER 2021-11-08 16:32 | Outpatient (CLI) | payer BC, MEDICAID, SELFPAY ==
[2021-11-08] VITALS (11 sets, daily range): BP systolic 123–185; BP diastolic 58–87; PULSE 66–89; RESP 18; BMI 50.6
[2021-11-08 18:18] LABS: Basophils % 0.3 %; Eosinophils # 0.1 10^3/uL (0.0-0.8); Eosinophils % 0.9 %; Hematocrit 35.7 % (37.0-47.0); Hemoglobin 11.5 g/dL (11.5-15.3); Lymphocytes # 2.5 10^3/uL (0.8-4.8); Lymphocytes % 21.6 %; Mean Corpuscular HGB Conc 32.2 g/dL (30.0-36.0); Mean Corpuscular Hemoglobin 27.6 pg (28.0-34.0); Mean Corpuscular Volume 85.8 fl (81-99); Monocytes # 0.7 10^3/uL (0.2-0.9); Neutrophils # 8.19 10^3/uL (1.8-7.7); Neutrophils % 70.4 %; Nucleated Red Blood Cells % 0 %; Platelet Count 339 10^3/cmm (130-400); Red Blood Count 4.16 10^6/uL (4.1-5.3); White Blood Count 11.6 10^3/uL (4.0-10.0)
[2021-11-08 18:34] LABS: Urine Creatinine 147 mg/dL (28-217); Urine Protein Random 11 mg/dL
[2021-11-08 18:35] LABS: UPRO/UCREAT Ratio 0.07 mg/mg CR
[2021-11-08 18:36] LABS: Alanine Aminotransferase 6 U/L (0-33); Alkaline Phosphatase 121 IU/L (35-105); Anion Gap 18.2 (5-19); Aspartate Amino Transferase 8 U/L (0-32); Blood Urea Nitrogen 11 mg/dL (6-20); Carbon Dioxide 19 mmol/L (22-29); Chloride 103 mmol/L (98-107); Globulin 3.5 g/dL (1.3-4.6); Glomerular Filtration Rate 145.9 mL/min (90-130); Glucose 78 mg/dL (65-115); Osmolality Calculated 280 mOsm/kg (285-295); Potassium 4.2 mmol/L (3.5-5.1); Sodium 136 mmol/L (136-145); Total Bilirubin 0.2 mg/dL (0.15-1.2); Total Protein 6.5 g/dL (6.6-8.7)
== END 2021-11-08 19:02 | disposition home or self-care (01) ==
LOC: OPOB 16:37 → OBGYN 16:38
PROVIDERS: PCP Family Medicine; Visit Provider Family Medicine
DX: O24.419 Gestational diabetes mellitus in pregnancy, unspecified control (principal); Z3A.00 Weeks of gestation of pregnancy not specified
CPT/HCPCS: 36415; 59025; 80053; 82570; 84156; 84550; 85025; 99211

== ENCOUNTER 2021-11-10 09:18 | Outpatient (CLI) | payer BC, MEDICAID, SELFPAY ==
[2021-11-10 09:29] VITALS: BP 138/65; PULSE 91; TEMP 36.1
[2021-11-10 09:31] VITALS: RESP 18
[2021-11-10 09:32] VITALS: BMI 51.2
[2021-11-10 09:44] VITALS: BP 142/68; PULSE 80
[2021-11-10 09:59] VITALS: BP 142/66; PULSE 86
[2021-11-10 10:14] VITALS: BP 137/63; PULSE 83
[2021-11-10 10:23] VITALS: BP 137/63; PULSE 83
== END 2021-11-10 10:23 | disposition home or self-care (01) ==
LOC: OPOB 09:19 → OBGYN 09:22
PROVIDERS: PCP Family Medicine; Visit Provider Family Medicine
DX: O16.9 Unspecified maternal hypertension, unspecified trimester (principal); Z3A.00 Weeks of gestation of pregnancy not specified
CPT/HCPCS: 59025; 99211

== ENCOUNTER 2021-11-12 19:40 | Inpatient (IN) | payer BC, MEDICAID, SELFPAY ==
[2021-11-12] VITALS (23 sets, daily range): BP systolic 102–165; BP diastolic 53–93; PULSE 59–101; TEMP 36.6; BMI 50.8
[2021-11-12] MEDS: lactated ringers 1,000 ML 999 ML IV ×2 (17:35→20:21)
--- NOTE | 2021-11-12 20:28 | ANES.PREANE2 ---
Pre-Anesthetic Assessment Height/Weight: Height 1.63 m Weight 134.263 kg Temp Pulse BP 97.9 F 78 144/93 11/12/21 14:21 11/12/21 19:38 11/12/21 19:38 Preop Diagnosis: IUP repeat Familial anesthetic complications: none Was Beta Eddie taken within 24 hours: N/A Was Clonidine taken within 24 hours: N/A Last Intake: 11:00 Social No alcohol and No tobacco Exam alert and oriented x 3 Airway Submandibular: within normal limits Cervical ROM: within normal limits Mallampati: Class II Dentition: full History/ROS No significant history except as noted Pulmonary None reported CV/HEM Hypertension (gestational only) None reported Hepatic None reported GI Gastroesophageal Reflux Disease Metabolic Diabetes Mellitus (gesttional) and Morbid Obesity [facility] [place] None reported Neuropsych None reported Anesthetic Plan ASA status: 3 Anesthesia: Anesthesia Evaluation and Regional (specify below) Risk of > 500 ml blood loss (7ml/kg in children): No Medications/Allergies Home Medications Medication Instructions Recorded Confirmed Last Taken Type metformin 500 mg tablet 500 mg PO DAILY 10/18/21 11/08/21 11/08/21 09:00 History vit no.95-ferrous 1 tab PO DAILY 10/18/21 11/08/21 11/08/21 09:00 History fumarate 28 mg-folic acid 800 mcg tablet () Allergies Allergy/AdvReac Type Severity Reaction Status Date / Time No Known Allergies Allergy Verified 11/21/20 14:24 Current Medications Generic Name Dose Route Start Last Admin Trade Name Freq PRN Reason Stop Dose Admin Lactated Ringer's 1,000 mls @ 999 mls/hr 11/12/21 19:53 11/12/21 20:21 Lactated Ringers IV 11/12/21 20:53 999 mls/hr .Q1H1M ONE Administration PFSH Anesthesia Social History Smoking and tobacco status: current every day smoker Female Reproductive History Date of last menstrual period: 10/02/20 : 7 Data Anesthesia : 11/12/21 17:30 Cardiac Studies: No Data to Display
[2021-11-12 20:37] LABS: Basophils % 0.1 %; Eosinophils # 0.1 10^3/uL (0.0-0.8); Eosinophils % 0.7 %; Hematocrit 37.8 % (37.0-47.0); Hemoglobin 12.3 g/dL (11.5-15.3); Lymphocytes # 2.3 10^3/uL (0.8-4.8); Lymphocytes % 17.5 %; Mean Corpuscular HGB Conc 32.5 g/dL (30.0-36.0); Mean Corpuscular Hemoglobin 27.6 pg (28.0-34.0); Mean Corpuscular Volume 84.9 fl (81-99); Mean Platelet Volume 9.8 fL (7.4-10.4); Monocytes # 0.7 10^3/uL (0.2-0.9); Monocytes % 5.3 %; Neutrophils # 10.13 10^3/uL (1.8-7.7); Neutrophils % 75.9 %; Nucleated Red Blood Cells % 0 %; Platelet Count 404 10^3/cmm (130-400); Red Blood Count 4.45 10^6/uL (4.1-5.3); Red Cell Distribution Width 13.7 % (12.1-15.1); White Blood Count 13.4 10^3/uL (4.0-10.0)
[2021-11-12] MEDS: famotidine 20 mg/2 mL INJ IVP (23:11)
[2021-11-12] MEDS: metoclopramide 5 mg/mL SDV 2 mL 10 MG IVP (23:11)
[2021-11-12] MEDS: citric acid-sodium citrate 30 mL UDC PO (23:11)
--- NOTE | 2021-11-12 23:32 | PM.OPHPUD ---
Labor & Delivery H&P Update Date of Procedure: November 12, 2021 Date H&P Performed: 11/12/21 Admission Diagnosis: at 37 weeks 5 days gestation Early labor Repeat section -induced hypertension, newly diagnosed Gestational diabetes mellitus Preop diagnosis: IUP Planned procedure: Operation Date: 11/12/21 23:30 Proposed Procedures p Section Repeat(Not Applicable) - Yessenia Conley MD Other information: This is a 30-year-old G7, P1 at 37 weeks 5 days gestation who presented to labor and delivery complaining of abdominal pain and pressure. She was found to be jessa regularly every 3 to 5 minutes. She was given a bolus of IV fluids and for a while the contractions spaced out. Simultaneously she had several elevated blood pressures 165/84, 157/82, 144/93(these were in addition to elevated BP on a previous triage visit 4 days ago). Decision was made to proceed with repeat section secondary to PIH, GDM, and regular painful contractions at term.
[2021-11-13] VITALS (38 sets, daily range): BP systolic 94–141; BP diastolic 50–78; PULSE 65–88; RESP 18; TEMP 36.1; O2SAT 95–100
--- NOTE | 2021-11-13 00:58 | PM.OP ---
Operative Report Date of procedure: November 13, 2021 Pre-op diagnosis: IUP at 37 weeks 5 days gestation Early labor Repeat section -induced hypertension Gestational diabetes mellitus Procedure done: Repeat low transverse section Specimens removed/disposition: Vertex male vertex male weight 2815 g, 6 pounds 3 ounces, Apgars 7 and 9 Surgeon: Yessenia Conley MD Estimated blood loss (mL): 500 IV fluids: 1500 Urine output: 50 Complications: Wtsrbqn-eviwkdb-brbutlolav adhesions Procedure: After informed consent the patient was taken to the OR where spinal anesthesia was administered. She was prepped and draped in normal sterile fashion in dorsal supine position with a left lateral tilt. A Pfannenstiel skin incision was made and carried through to the underlying layer of fascia sharply. The fascial incision was extended laterally using the Mayos. The fascia was grasped with Jovan clamps and the underlying rectus muscles were dissected off taking care to avoid injury to the underlying tissue. The peritoneum was entered bluntly using a hemostat and an attempt was made to widen the incision site manually however there were multiple adhesions. The midline and right half of the uterus was adheased to omentum and peritoneum. The adhesions were gently taken down using the Bovie. There was no dissectible vesicouterine peritoneum so a bladder flap was not created. The bladder blade was still inserted. Uterine incision was made in a transverse fashion in the lower uterine segment. Amniotic rupture of membranes was performed using an Allis clamp and clear fluid was noted. The was delivered atraumatically with bulb suction of the mouth and nares after delivery. The cord was clamped and cut and the was handed to the waiting pediatric nurse. Cord blood was obtained. Fundal pressure was used to deliver the placenta. The uterus was then exteriorized from the abdomen and a dry sponge was used to clear the uterus of clots and debris. The uterine incision was repaired using 0 chromic in a running locked fashion. The uterus was then returned to the abdomen and a second layer of 0 chromic was used in an imbricating manner. Irrigation was then used to clear the gutters of clots and debris. The uterine incision was reinspected for hemostasis. There was no discernible peritoneum to reapproximate. A significant amount of omentum was herniating through the rectus muscles so the rectus muscles were gently reapproximated using 4-0 Vicryl. The fascia was then reapproximated using 0 Vicryl in a running fashion. The subcutaneous tissue was irrigated and any small bleeders were coagulated using the Bovie. The subcutaneous tissue was then reapproximated using 4-0 Vicryl. Skin was then reapproximated using 4-0 Vicryl in a running fashion on a Cam needle. Steri-Strips and a pressure bandage were applied and patient went to recovery in good condition. Sponge instrument and needle counts were correct
[2021-11-13] MEDS: dextrose 5%-lactated ringers 1,000 ML 125 ML IV (03:58)
[2021-11-13] MEDS: ketorolac 30 mg/mL INJ IVP ×3 (06:51→20:38)
--- NOTE | 2021-11-13 07:10 | ANE.PACU2 ---
Inpatient post-anesthesia follow up: Airway intact: Yes Vital signs: Temperature 97 F Pulse Rate 70 Respiratory Rate 18 Blood Pressure 111/57 Pulse Oximetry 98 Oxygen Delivery Me thod Room Air Oxygen Flow Rate Fraction of Inspir ed Oxygen Hydration adequate: Yes Nausea and vomiting: No Pain level: 2 Mental status: Baseline
[2021-11-13 09:10] LABS: Hematocrit 33.9 % (37.0-47.0); Hemoglobin 10.8 g/dL (11.5-15.3); Mean Corpuscular HGB Conc 31.9 g/dL (30.0-36.0); Mean Corpuscular Hemoglobin 27.2 pg (28.0-34.0); Mean Corpuscular Volume 85.4 fl (81-99); Mean Platelet Volume 9.5 fL (7.4-10.4); Platelet Count 324 10^3/cmm (130-400); Red Blood Count 3.97 10^6/uL (4.1-5.3); Red Cell Distribution Width 13.6 % (12.1-15.1); White Blood Count 11.1 10^3/uL (4.0-10.0)
[2021-11-13] MEDS: HYDROcodone-acetaminophen 5-325 mg Tablet PO (14:51)
[2021-11-14] MEDS: HYDROcodone-acetaminophen 5-325 mg Tablet PO ×3 (01:20→13:44)
[2021-11-14 05:26] VITALS: BP 128/73; PULSE 93
--- NOTE | 2021-11-14 08:23 | P.DS_ITS ---
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 She had a history of a , and we were planning on a repeat section. And as a result a was performed. The patient was noted to have -induced hypertension. She was noted to have gestational diabetes that was well controlled. Her section was unremarkable. Hospital course was also unremarkable. She initially attempted to breast-feed, but later converted to bottlefeeding. Bili was within normal limits. Her pain was well controlled. There were no concerns. Information Peripartum Data: Delivery Method: Physical Exam Narrative: She is in no acute distress Lungs are clear auscultation bilaterally Her heart has a regular rate and rhythm Her fundus is below the umbilicus and firm Her dressing is clean, dry and intact. Her Steri-Strips are intact and dry as well. Her extremities have trace edema Urinary Catheter Management: Caldwell: Cath Placed During This Visit: yes, but has since been removed by the nurse Reason for Continuing Indwelling Catheter: Decision to DC Catheter Urinary Catheter Date of Insertion: 11/12/21 Urinary Catheter Time of Insertion: 23:35 Date Urinary Catheter Removed: 11/13/21 Time Urinary Catheter Discontinued: 15:40 Discharge Data Studies Completed and Pending Laboratory Results WBC 11.1 10^3/uL (4.0-10.0) H 11/13/21 08:50 RBC 3.97 10^6/uL (4.1-5.3) L 11/13/21 08:50 Hgb 10.8 g/dL (11.5-15.3) L 11/13/21 08:50 Hct 33.9 % (37.0-47.0) L 11/13/21 08:50 MCV 85.4 fl (81-99) 11/13/21 08:50 MCH 27.2 pg (28.0-34.0) L 11/13/21 08:50 MCHC 31.9 g/dL (30.0-36.0) 11/13/21 08:50 RDW 13.6 % (12.1-15.1) 11/13/21 08:50 Plt Count 324 10^3/cmm (130-400) 11/13/21 08:50 MPV 9.5 fL (7.4-10.4) 11/13/21 08:50 Neut % (Auto) 75.9 % 11/12/21 17:30 Lymph % (Auto) 17.5 % 11/12/21 17:30 Pinal % (Auto) 5.3 % 11/12/21 17:30 Eos % (Auto) 0.7 % 11/12/21 17:30 Baso % (Auto) 0.1 % 11/12/21 17:30 Neut # (Auto) 10.13 10^3/uL (1.8-7.7) H 11/12/21 17:30 Lymph # (Auto) 2.3 10^3/uL (0.8-4.8) 11/12/21 17:30 Pinal # (Auto) 0.7 10^3/uL (0.2-0.9) 11/12/21 17:30 Eos # (Auto) 0.1 10^3/uL (0.0-0.8) 11/12/21 17:30 Baso # (Auto) 0.0 10^3/uL (0.0-0.1) 11/12/21 17:30 Nucleated RBC % (auto) 0 % 11/12/21 17:30 Nucleated RBCs # 0.0 /100WBC 11/12/21 17:30 Blood Type O Positive 11/12/21 17:30 Rho(D) Type Positive 11/12/21 17:30 Antibody Screen Negative 11/12/21 17:30 Vitals Last Vital Signs Temp 97 F L 11/13/21 01:19 Pulse 93 11/14/21 05:26 Resp 18 11/13/21 01:19 BP 128/73 11/14/21 05:26 Pulse Ox 98 11/13/21 03:28 O2 Del Method 11/13/21 01:19 Discharge Plan Discharge Patient Disposition: Home Condition: Stable Prescriptions: New ibuprofen 800 mg Tablet 800 mg PO TID Qty: 45 0RF hydrocodone-acetaminophen 5-325 mg Tablet 1 tab PO Q6H PRN (Reason: Moderate To Severe Pain) Qty: 28 0RF docusate sodium 100 mg Capsule 100 mg PO BID Qty: 14 0RF Continued PNV cmb#95-ferrous fumarate-FA [] 28 mg iron- 800 mcg Tablet 1 tab PO DAILY Discontinued metformin 500 mg Tablet 500 mg PO DAILY No Action albuterol sulfate 90 mcg/actuation HFA aerosol inhaler 2 inh inhalation Q6H PRN (Reason: shortness of breath or wheezing) Qty: 8.5 0RF Discharge Orders: Discharge Order (Routine); Ordered 11/14/21 Ordered By: Rafy Klein Referrals: Yessenia Conley MD [Physician] - 11/19/21 9:30 am Discharge Diet: Advance as tolerated Discharge Activity: Limit activity as instructed Patient Instructions: Depression (DC), Bleeding (DC), Preeclampsia and Eclampsia After Delivery (GEN), OB - Latoya/Yael, OB Discharge Report, OB Food/Drug Interaction Guide, OB Care at Home, Opioid Safety, OB Home Care, Abnormal Bleeding Discharge 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
[2021-11-14] MEDS: ferrous sulfate EC 325 mg Tablet PO (09:45)
[2021-11-14] MEDS: prenatal vitamin Capsule 1 CAP PO (09:45)
[2021-11-14] MEDS: docusate sodium 100 mg Capsule PO (09:45)
[2021-11-14] MEDS: ibuprofen 800 mg tablet PO (09:45)
[2021-11-14 09:48] VITALS: BP 140/69; PULSE 87
[2021-11-14 14:25] VITALS: BP 140/72; PULSE 83; RESP 16; TEMP 36.4
== END 2021-11-14 14:35 | disposition home or self-care (01) | DRG 788 ==
LOC: OPOB 11-13 01:14 → OBGYN 11-13 01:14
PROVIDERS: Admitting Provider Family Medicine; PCP Family Medicine; Visit Provider Family Medicine
PROC: (CPT 59514; principal; 2021-11-12 23:30)
DX: O34.211 Maternal care for low transverse scar from previous cesarean delivery (principal); O24.425 Gestational diabetes mellitus in childbirth, controlled by oral hypoglycemic drugs; O13.4 Gestational [pregnancy-induced] hypertension without significant proteinuria, complicating childbirth; O99.334 Smoking (tobacco) complicating childbirth; F17.200 Nicotine dependence, unspecified, uncomplicated; O99.892 Other specified diseases and conditions complicating childbirth; N73.6 Female pelvic peritoneal adhesions (postinfective); Z3A.37 37 weeks gestation of pregnancy; Z37.0 Single live birth; Z79.84 Long term (current) use of oral hypoglycemic drugs
CPT/HCPCS: 12345; 36415; 51702; 59025; 85025; 85027; 86850; 86900; 96374; 96376; 99211; J1200; J1885; J2274; J2405; J2765; J3010; J3490; J7030

== ENCOUNTER 2021-11-18 16:31 | Emergency (ER) | payer BC, MEDICAID, SELFPAY ==
[2021-11-18 16:36] VITALS: BP 156/86; PULSE 90; RESP 19; TEMP 36.8; O2SAT 95
--- NOTE | 2021-11-18 17:31 | XRR_ITS ---
PROCEDURE INFORMATION: Exam: XR Chest Exam date and time: 11/18/2021 5:41 PM Age: 30 years old Clinical indication: Pain; Chest pressure; Additional info: SOB TECHNIQUE: Imaging protocol: Radiologic exam of the chest. Views: 1 view. COMPARISON: No relevant prior studies available. FINDINGS: Lungs: Unremarkable. No consolidation. Pleural spaces: Unremarkable. No pleural effusion. No pneumothorax. Heart/Mediastinum: Unremarkable. No cardiomegaly. Bones/joints: Unremarkable. XR/XR chest 1V portable [id number] IMPRESSION: No acute findings.
[2021-11-18 17:32] VITALS: BP 155/111; PULSE 87; RESP 16; O2SAT 96
--- NOTE | 2021-11-18 18:00 | ECG_ITS ---
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 Measurements Intervals [place] Rate: 82 P: 11 [place]: 179 QRS: 23 QRSD: 89 T: 23 QT: 356 QTc: 417 Interpretive Statements SINUS RHYTHM POSSIBLE ANTERIOR MYOCARDIAL INFARCTION , OF INDETERMINATE AGE [30 ms Q WAVE IN V3/V4, OR R < 0.2 mV IN V4] No previous ECG available for comparison Electronically Signed On 11-19-2021 7:57:20 CDT by Manuela River M.D. [email or web address]
--- NOTE | 2021-11-18 18:04 | ED_ITS ---
Documented by User: BRYAN Archuleta 11/18/21 23:40 HPI - SOB/Dyspnea General: Chief Complaint: Shortness of Breath/Dyspnea Stated Complaint: SOB Time Seen by Provider: 11/18/21 17:31 History of Present Illness: HPI Narrative: Patient is a 30-year-old female comes to the ED with shortness of breath and chest pain. Her symptoms started approximately 2 days ago. Patient recently delivered baby via on November 13, so patient is 5 days postop. The C- section surgery went well and there were no complications. Due to postop pain she does report she has been less active than usual. She reports that she started developing some shortness of breath that has continued to progress for the past 2 days. When she is up ambulating or speaking she has a hard time catching her breath. She does endorse feeling some left-sided chest pain as well that worsens upon inspiration. Denies any fevers, nausea or vomiting. She reports having normal postop abdominal pain and says surgical incision site is healing well and she has no other complaints. Denies any history of blood clots. Associated symptoms: Reports chest pain; Deny abdominal pain, fever(s), nausea, orthopnea, palpitations or vomiting Review of Systems Const: Denies: fever(s), chills or fatigue Eyes: Denies: change in vision or eye discomfort ENMT: Denies: throat pain, odynophagia, nasal discharge or nasal congestion Card: Reports: chest pain; Denies: palpitations, edema, swelling of feet/ankles, dyspnea on exertion or orthopnea Resp: Reports: dyspnea; Denies: productive cough or non-productive cough GI: Denies: abdominal pain, nausea, vomiting, diarrhea, constipation or hematochezia : Denies: flank pain, dysuria or hematuria Musc: Denies: neck pain, back pain or extremity swelling Skin/Breast: Denies: rash or new lesions Neuro: Denies: headache(s), numbness in extremities or weakness in extremities [facility] PFSH: Medical History No pertinent family history Surgical History History of Social History Smoking and tobacco status: current every day smoker Female Reproductive History: Date of last menstrual period: 10/02/20 Physical Exam Narrative: EXAM NARRATIVE: Patient is sitting comfortably on exam bed when I enter the room. Upon obtaining history patient does have to frequently stop in between sentences to catch her breath. Her breathing does appear little labored. Const: COMMON NORMALS: patient oriented x3 and alert GENERAL APPEARANCE: cooperative HENMT: COMMON NORMALS: normocephalic HEAD & SCALP: normocephalic MOUTH: Normal oral and palatal mucosa present THROAT: posterior oropharynx normal and uvula midline Neck/C-Spine: COMMON NORMALS: supple GENERAL: Yes normal visual inspection Resp: COMMON NORMALS: No retractions, No use of accessory muscles and clear to auscultation bilaterally EFFORT & INSPECTION: No able to speak in complete sentences and Yes labored AUSCULTATION: clear to auscultation bilaterally Cardio: COMMON NORMALS: regular rate, regular rhythm, S1 normal heart sound present, S2 normal heart sound present, No gallops present (Cardio), No clicks present (Cardio), No murmurs present (Cardio) and Peripheral pulses 2+ throughout RATE: regular rate RHYTHM: regular rhythm HEART SOUNDS: S1 normal heart sound present and S2 normal heart sound present PERIPHERAL PULSES: Peripheral pulses 2+ throughout GI: COMMON NORMALS: Normal to inspection, nondistended, normoactive bowel sounds present, Soft to palpation, non-tender and no masses PALPATION: Yes Soft to palpation : COMMON NORMALS: Yes no CVA tenderness BLADDER/KIDNEY EXAM: Yes no CVA tenderness Back/Pelvis: COMMON NORMALS: no CVA tenderness Extremity: COMMON NORMALS: normal to inspection Neuro: COMMON NORMALS: patient oriented x3 SENSORIUM/ORIENTATION: Yes alert GAIT: Yes Normal gait present Skin: GENERAL SKIN EXAM: dry skin Course Vital Signs: Vital signs: Vital Signs Temperature 98.3 F 11/18/21 16:36 Pulse Rate 86 11/18/21 22:44 Respiratory Rate 16 11/18/21 22:44 Blood Pressure 145/93 11/18/21 22:44 Pulse Oximetry 93 11/18/21 22:44 Oxygen Delivery Me thod 11/18/21 17:32 MDM - SOB/Dyspnea Medical Decision Making Patient is a 30-year-old female comes to the ED with shortness of breath and chest pain. Her symptoms started approximately 2 days ago. Patient recently delivered baby via on November 13, so patient is 5 days postop. Vitals are stable. Patient's lungs are clear to auscultation bilaterally. She does appear to have some slight labored breathing and has to stop and catch her breath when speaking. Rest of her exam is benign. CBC, CMP are unremarkable. Troponin negative. EKG shows normal sinus rhythm with no ST segment elevation or depression seen. Chest x-ray shows no acute findings. D-dimer was elevated at 3.13. COVID test is pending. CTA of chest showed no PE but did note some small amount of bilateral perihilar opacities.. Home O2 eval was performed and patient did not qualify for any oxygen. She was given IV morphine here in the ED and her chest pain improved. Think some of her symptoms are likely due to postop atelectasis and deconditioning. She was given an incentive spirometer here in the ED and showed how to use it and I instructed on using it multiple times every hour at home. For the small amount of infiltrates I am going to send patient home on an antibiotic. She was diagnosed with shortness of breath and discharged home with a prescription for an antibiotic and albuterol inhaler. She was told to call [facility] tomorrow morning to find out COVID-[address] results. She is going to call Dr. Klein tomorrow morning to set up an appointment with the next couple weeks and I instructed her that if her COVID-19 test is positive she can talk to Latoya about Paxlovid as a treatment option. Return to ED precautions given. Patient understood and agreed with plan. Lab Data I reviewed the patient's lab results. : 11/18/21 18:10 11/18/21 18:10 Labs/Radiology: Radiology Impressions Chest X-Ray 11/18/21 17:31 IMPRESSION: No acute findings. Chest CTA 11/18/21 18:46 IMPRESSION: 1. No evidence of pulmonary embolism within the limitations of the examination described in the body of the report. 2. Bilateral perihilar ground-glass opacities noted suggestive of small airway infectious or inflammatory process. Laboratory Results WBC 9.6 10^3/uL (4.0-10.0) 11/18/21 18:10 RBC 4.06 10^6/uL (4.1-5.3) L 11/18/21 18:10 Hgb 11.2 g/dL (11.5-15.3) L 11/18/21 18:10 Hct 34.2 % (37.0-47.0) L 11/18/21 18:10 MCV 84.2 fl (81-99) 11/18/21 18:10 MCH 27.6 pg (28.0-34.0) L 11/18/21 18:10 MCHC 32.7 g/dL (30.0-36.0) 11/18/21 18:10 RDW 13.8 % (12.1-15.1) 11/18/21 18:10 Plt Count 328 10^3/cmm (130-400) 11/18/21 18:10 MPV 8.5 fL (7.4-10.4) 11/18/21 18:10 Neut % (Auto) 74.2 % 11/18/21 18:10 Lymph % (Auto) 15.8 % 11/18/21 18:10 [place] % (Auto) 5.7 % 11/18/21 18:10 Eos % (Auto) 2.7 % 11/18/21 18:10 Baso % (Auto) 0.2 % 11/18/21 18:10 Neut # (Auto) 7.09 10^3/uL (1.8-7.7) 11/18/21 18:10 Lymph # (Auto) 1.5 10^3/uL (0.8-4.8) 11/18/21 18:10 [place] # (Auto) 0.5 10^3/uL (0.2-0.9) 11/18/21 18:10 Eos # (Auto) 0.3 10^3/uL (0.0-0.8) 11/18/21 18:10 Baso # (Auto) 0.0 10^3/uL (0.0-0.1) 11/18/21 18:10 Nucleated RBC % (auto) 0 % 11/18/21 18:10 Nucleated RBCs # 0.0 /100WBC 11/18/21 18:10 D-Dimer 3.13 ug/mIFEU (0-0.59) H 11/18/21 18:10 Sodium 137 mmol/L (136-145) 11/18/21 18:10 Potassium 4.2 mmol/L (3.5-5.1) 11/18/21 18:10 Chloride 102 mmol/L (98-107) 11/18/21 18:10 Carbon Dioxide 22 mmol/L (22-29) 11/18/21 18:10 Anion Gap 17.2 (5-19) 11/18/21 18:10 BUN 9 mg/dL (6-20) 11/18/21 18:10 Creatinine 0.6 mg/dL (0.5-0.9) 11/18/21 18:10 GFR Calculation 118.2 mL/min (90-130) 11/18/21 18:10 Glucose 84 mg/dL (65-115) 11/18/21 18:10 Calculated Osmolality 282 mOsm/kg (285-295) L 11/18/21 18:10 Calcium 9.1 mg/dL (8.5-10.5) 11/18/21 18:10 Total Bilirubin 0.2 mg/dL (0.15-1.2) 11/18/21 18:10 AST 16 U/L (0-32) 11/18/21 18:10 ALT 21 U/L (0-33) 11/18/21 18:10 Alkaline Phosphatase 112 U/L (35-105) H 11/18/21 18:10 Troponin T Baseline 9 ng/L (0-10) 11/18/21 18:10 Troponin T 120 Minute 8.79 ng/L (0-10) 11/18/21 20:17 Delta Troponin T -0.21 ABS# (0-10) L 11/18/21 20:17 Total Protein 6.4 g/dL (6.6-8.7) L 11/18/21 18:10 Albumin 3.5 g/dL (3.5-5.2) 11/18/21 18:10 Globulin 2.9 g/dL (1.3-4.6) 11/18/21 18:10 Coronavirus 229E (PCR) Not detected (NOT DETECT) 11/18/21 20:48 Human Metapneumovir PCR Not detected (NOT DETECT) 11/18/21 22:59 Entero/Rhino (PCR) Detected (NOT DETECT) A 11/18/21 22:59 SARS-CoV-2 (PCR) Not detected (NOT DETECT) 11/18/21 20:48 EKG Data EKG 1: EKG Interpretation Date: 11/18/21 Interpretation: Initial EKG -sinus rhythm, 82 bpm, no ST segment elevation or depression seen. EKG 2: EKG Interpretation Date: 11/18/21 Interpretation: Second EKG done approximately an hour and a half after initial. Sinus rhythm, 87 bpm, no ST segment elevation or depression seen. No acute change compared to prior. Discharge Plan Discharge Patient Disposition: Home Clinical Impression: Shortness of breath Condition: Stable Prescriptions: New azithromycin 250 mg tablet 250 mg PO DAILY 4 Days Qty: 4 0RF Rx Instructions: start on day 2 of therapy albuterol sulfate 90 mcg/actuation HFA aerosol inhaler 2 inh inhalation Q6H PRN (Reason: shortness of breath or wheezing) Qty: 8.5 0RF No Action PNV cmb#95-ferrous fumarate-FA [] 28 mg iron- 800 mcg Tablet 1 tab PO DAILY ibuprofen 800 mg Tablet 800 mg PO TID Qty: 45 0RF hydrocodone-acetaminophen 5-325 mg Tablet 1 tab PO Q6H PRN (Reason: Moderate To Severe Pain) Qty: 28 0RF docusate sodium 100 mg Capsule 100 mg PO BID Qty: 14 0RF Discharge Orders: Discharge ED (Routine); Ordered 11/18/21 Ordered By: Guzman Simmons Referrals: Rafy Klein MD [Primary Care Provider] - Discharge Diet: Regular Discharge Activity: Increase activity as tolerated Patient Instructions: Shortness of Breath (ED) Activity Restrictions/Additional Instructions: Call PCP tomorrow morning to set up an appoint with them within the next 3 to 5 days for reevaluation. Call [facility] tomorrow morning to find out COVID test results. If it is positive you can discuss with Dr. Klein the possibility of starting Paxlovid. take medications as prescribed. Use inhaler as needed for any shortness of breath. Make sure you are using the incentive spirometer a couple times every hour to help with your breathing and to prevent any pneumonia. Return to the ER or your medical provider if condition worsens. Please read and understand discharge instructions. Thank you for choosing [facility] for your healthcare needs today. Please realize this is an emergency room and that we are providing you with a medical screening exam and this may not be complete and all inclusive of all the testing and or work up that you may need to determine your ailment or severity of your illness. It is very important that you follow up as instructed or that you return to the Emergency Department should you have concerns or if your condition changes or worsens in any way. Coding Level of Care Code ED Coat Room Attendant for Chg Fwd Exam Comprehensive Documented by User: John Wright, DO 11/19/21 00:55 HPI - SOB/Dyspnea General: Chief Complaint: Shortness of Breath/Dyspnea Stated Complaint: SOB Time Seen by Provider: 11/18/21 17:31 PFSH ED 2 PFSH: Medical History No pertinent family history Surgical History History of Social History Smoking and tobacco status: current every day smoker Course Vital Signs: Vital signs: Vital Signs Temperature 98.3 F 11/18/21 16:36 Pulse Rate 86 11/18/21 22:44 Respiratory Rate 16 11/18/21 22:44 Blood Pressure 145/93 11/18/21 22:44 Pulse Oximetry 93 11/18/21 22:44 Oxygen Delivery Me thod 11/18/21 17:32 MDM - SOB/Dyspnea Medical Decision Making Patient is a 30-year-old female comes to the ED with shortness of breath and chest pain. Her symptoms started approximately 2 days ago. Patient recently delivered baby via on November 13, so patient is 5 days postop. Vitals are stable. Patient's lungs are clear to auscultation bilaterally. She does appear to have some slight labored breathing and has to stop and catch her breath when speaking. Rest of her exam is benign. CBC, CMP are unremarkable. Troponin negative. EKG shows normal sinus rhythm with no ST segment elevation or depression seen. Chest x-ray shows no acute findings. D-dimer was elevated at 3.13. COVID test is pending. CTA of chest showed no PE but did note some small amount of bilateral perihilar opacities.. Home O2 eval was performed and patient did not qualify for any oxygen. She was given IV morphine here in the ED and her chest pain improved. Think some of her symptoms are likely due to po stop atelectasis and deconditioning. She was given an incentive spirometer here in the ED and showed how to use it and I instructed on using it multiple times every hour at home. For the small amount of infiltrates I am going to send patient home on an antibiotic. She was diagnosed with shortness of breath and discharged home with a prescription for an antibiotic and albuterol inhaler. She was told to call [facility] tomorrow morning to find out COVID-19 test results. She is going to call Dr. Klein tomorrow morning to set up an appointment with the next couple weeks and I instructed her that if her COVID-19 test is positive she can talk to Latoya about Paxlovid as a treatment option. Return to ED precautions given. Patient understood and agreed with plan. This patient was originally seen by Mr. Iris PA-C.? I agree with his history, evaluation, and treatment. Lab Data : 11/18/21 18:10 11/18/21 18:10 Labs/Radiology: Radiology Impressions Chest X-Ray 11/18/21 17:31 IMPRESSION: No acute findings. Chest CTA 11/18/21 18:46 IMPRESSION: 1. No evidence of pulmonary embolism within the limitations of the examination described in the body of the report. 2. Bilateral perihilar ground-glass opacities noted suggestive of small airway infectious or inflammatory process. Laboratory Results WBC 9.6 10^3/uL (4.0-10.0) 11/18/21 18:10 RBC 4.06 10^6/uL (4.1-5.3) L 11/18/21 18:10 Hgb 11.2 g/dL (11.5-15.3) L 11/18/21 18:10 Hct 34.2 % (37.0-47.0) L 11/18/21 18:10 MCV 84.2 fl (81-99) 11/18/21 18:10 MCH 27.6 pg (28.0-34.0) L 11/18/21 18:10 MCHC 32.7 g/dL (30.0-36.0) 11/18/21 18:10 RDW 13.8 % (12.1-15.1) 11/18/21 18:10 Plt Count 328 10^3/cmm (130-400) 11/18/21 18:10 MPV 8.5 fL (7.4-10.4) 11/18/21 18:10 Neut % (Auto) 74.2 % 11/18/21 18:10 Lymph % (Auto) 15.8 % 11/18/21 18:10 [place] % (Auto) 5.7 % 11/18/21 18:10 Eos % (Auto) 2.7 % 11/18/21 18:10 Baso % (Auto) 0.2 % 11/18/21 18:10 Neut # (Auto) 7.09 10^3/uL (1.8-7.7) 11/18/21 18:10 Lymph # (Auto) 1.5 10^3/uL (0.8-4.8) 11/18/21 18:10 [place] # (Auto) 0.5 10^3/uL (0.2-0.9) 11/18/21 18:10 Eos # (Auto) 0.3 10^3/uL (0.0-0.8) 11/18/21 18:10 Baso # (Auto) 0.0 10^3/uL (0.0-0.1) 11/18/21 18:10 Nucleated RBC % (auto) 0 % 11/18/21 18:10 Nucleated RBCs # 0.0 /100WBC 11/18/21 18:10 D-Dimer 3.13 ug/mIFEU (0-0.59) H 11/18/21 18:10 Sodium 137 mmol/L (136-145) 11/18/21 18:10 Potassium 4.2 mmol/L (3.5-5.1) 11/18/21 18:10 Chloride 102 mmol/L (98-107) 11/18/21 18:10 Carbon Dioxide 22 mmol/L (22-29) 11/18/21 18:10 Anion Gap 17.2 (5-19) 11/18/21 18:10 BUN 9 mg/dL (6-20) 11/18/21 18:10 Creatinine 0.6 mg/dL (0.5-0.9) 11/18/21 18:10 GFR Calculation 118.2 mL/min (90-130) 11/18/21 18:10 Glucose 84 mg/dL (65-115) 11/18/21 18:10 Calculated Osmolality 282 mOsm/kg (285-295) L 11/18/21 18:10 Calcium 9.1 mg/dL (8.5-10.5) 11/18/21 18:10 Total Bilirubin 0.2 mg/dL (0.15-1.2) 11/18/21 18:10 AST 16 U/L (0-32) 11/18/21 18:10 ALT 21 U/L (0-33) 11/18/21 18:10 Alkaline Phosphatase 112 U/L (35-105) H 11/18/21 18:10 Troponin T Baseline 9 ng/L (0-10) 11/18/21 18:10 Troponin T 120 Minute 8.79 ng/L (0-10) 11/18/21 20:17 Delta Troponin T -0.21 ABS# (0-10) L 11/18/21 20:17 Total Protein 6.4 g/dL (6.6-8.7) L 11/18/21 18:10 Albumin 3.5 g/dL (3.5-5.2) 11/18/21 18:10 Globulin 2.9 g/dL (1.3-4.6) 11/18/21 18:10 Coronavirus 229E (PCR) Not detected (NOT DETECT) 11/18/21 20:48 Human Metapneumovir PCR Not detected (NOT DETECT) 11/18/21 22:59 Entero/Rhino (PCR) Detected (NOT DETECT) A 11/18/21 22:59 SARS-CoV-2 (PCR) Not detected (NOT DETECT) 11/18/21 20:48 Discharge Plan Discharge Patient Disposition: Home Clinical Impression: Shortness of breath Condition: Stable Prescriptions: New azithromycin 250 mg tablet 250 mg PO DAILY 4 Days Qty: 4 0RF Rx Instructions: start on day 2 of therapy albuterol sulfate 90 mcg/actuation HFA aerosol inhaler 2 inh inhalation Q6H PRN (Reason: shortness of breath or wheezing) Qty: 8.5 0RF No Action PNV cmb#95-ferrous fumarate-FA [] 28 mg iron- 800 mcg Tablet 1 tab PO DAILY ibuprofen 800 mg Tablet 800 mg PO TID Qty: 45 0RF hydrocodone-acetaminophen 5-325 mg Tablet 1 tab PO Q6H PRN (Reason: Moderate To Severe Pain) Qty: 28 0RF docusate sodium 100 mg Capsule 100 mg PO BID Qty: 14 0RF Discharge Orders: Discharge ED (Routine); Ordered 11/18/21 Ordered By: Guzman Simmons Referrals: Rafy Klein MD [Primary Care Provider] - Discharge Diet: Regular Discharge Activity: Increase activity as tolerated Patient Instructions: Shortness of Breath (ED) Activity Restrictions/Additional Instructions: Call PCP tomorrow morning to set up an appoint with them within the next 3 to 5 days for reevaluation. Call [facility] tomorrow morning to find out COVID test results. If it is positive you can discuss with Dr. Klein the possibility of starting Paxlovid. take medications as prescribed. Use inhaler as needed for any shortness of breath. Make sure you are using the incentive spirometer a couple times every hour to help with your breathing and to prevent any pneumonia. Return to the ER or your medical provider if condition worsens. Please read and understand discharge instructions. Thank you for choosing [facility] for your healthcare needs today. Please realize this is an emergency room and that we are providing you with a medical screening exam and this may not be complete and all inclusive of all the testing and or work up that you may need to determine your ailment or severity of your illness. It is very important that you follow up as instructed or that you return to the Emergency Department should you have concerns or if your condition changes or worsens in any way. Coding Level of Care Code ED Coat Room Attendant for Zoila Fwmattie Exam Comprehensive
[2021-11-18] MEDS: ondansetron 2 mg/ML SDV 2 mL 4 MG IVP (18:18)
[2021-11-18] MEDS: morphine 4 mg/mL SDV 1 mL IVP (18:18)
[2021-11-18 18:21] LABS: Basophils % 0.2 %; Eosinophils # 0.3 10^3/uL (0.0-0.8); Eosinophils % 2.7 %; Hematocrit 34.2 % (37.0-47.0); Hemoglobin 11.2 g/dL (11.5-15.3); Lymphocytes # 1.5 10^3/uL (0.8-4.8); Lymphocytes % 15.8 %; Mean Corpuscular HGB Conc 32.7 g/dL (30.0-36.0); Mean Corpuscular Hemoglobin 27.6 pg (28.0-34.0); Mean Corpuscular Volume 84.2 fl (81-99); Mean Platelet Volume 8.5 fL (7.4-10.4); Monocytes # 0.5 10^3/uL (0.2-0.9); Monocytes % 5.7 %; Neutrophils # 7.09 10^3/uL (1.8-7.7); Neutrophils % 74.2 %; Nucleated Red Blood Cells % 0 %; Platelet Count 328 10^3/cmm (130-400); Red Blood Count 4.06 10^6/uL (4.1-5.3); Red Cell Distribution Width 13.8 % (12.1-15.1); White Blood Count 9.6 10^3/uL (4.0-10.0)
[2021-11-18 18:44] LABS: D Dimer 3.13 ug/mIFEU (0-0.59)
--- NOTE | 2021-11-18 18:46 | CTR_ITS ---
PROCEDURE INFORMATION: Exam: CTA Chest With Contrast Exam date and time: 11/18/2021 7:06 PM Age: 30 years old Clinical indication: Shortness of breath; Prior surgery; Surgery date: <1 month; Surgery type: C section; Additional info: SOB, cp. 5 days post c section. Elevated d dimer TECHNIQUE: Imaging protocol: Computed tomographic angiography of the chest with contrast. 3D rendering (Not supervised by radiologist): MIP and/or 3D reconstructed images were created by the technologist. Radiation optimization: All CT scans at this facility use at least one of these dose optimization techniques: automated exposure control; mA and/or kV adjustment per patient size (includes targeted exams where dose is matched to clinical indication); or iterative reconstruction. Contrast material: OMNI 350; Contrast volume: 90 ml; Contrast route: INTRAVENOUS (IV); COMPARISON: CR (CHEST, ) 11/18/2021 5:41 PM RADIATION DOSE METRICS: Total DLP (mGy-cm): 557.76 FINDINGS: Limitations: Poor contrast opacification of the pulmonary arterial system which limits evaluation of the more distal subsegmental branches. Pulmonary arteries: No filling defects seen within the pulmonary arterial system. Aorta: Unremarkable. No aortic aneurysm. No aortic dissection. Lungs: Bilateral perihilar ground-glass opacities noted. No masses. Pleural spaces: Unremarkable. No pneumothorax. No pleural effusion. Heart: Unremarkable. No cardiomegaly. No pericardial effusion. Lymph nodes: Unremarkable. No enlarged lymph nodes. Gallbladder and bile ducts: Small gallstones noted in the gallbladder body and fundus. Bones/joints: Unremarkable. No acute fracture. Soft tissues: Unremarkable. CT/CT angio chest PE protcl [id number] IMPRESSION: 1. No evidence of pulmonary embolism within the limitations of the examination described in the body of the report. 2. Bilateral perihilar ground-glass opacities noted suggestive of small airway infectious or inflammatory process.
[2021-11-18 18:49] LABS: Alanine Aminotransferase 21 U/L (0-33); Albumin Level 3.5 g/dL (3.5-5.2); Alkaline Phosphatase 112 U/L (35-105); Anion Gap 17.2 (5-19); Aspartate Amino Transferase 16 U/L (0-32); Blood Urea Nitrogen 9 mg/dL (6-20); Calcium 9.1 mg/dL (8.5-10.5); Carbon Dioxide 22 mmol/L (22-29); Chloride 102 mmol/L (98-107); Globulin 2.9 g/dL (1.3-4.6); Glomerular Filtration Rate 118.2 mL/min (90-130); Glucose 84 mg/dL (65-115); Osmolality Calculated 282 mOsm/kg (285-295); Potassium 4.2 mmol/L (3.5-5.1); Sodium 137 mmol/L (136-145); Total Bilirubin 0.2 mg/dL (0.15-1.2); Total Protein 6.4 g/dL (6.6-8.7); Troponin(5th) Baseline 9 ng/L (0-10)
--- NOTE | 2021-11-18 19:29 | ECG_ITS ---
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 Measurements Intervals [place] Rate: 87 P: 13 NM: 187 QRS: 16 QRSD: 86 T: 18 QT: 352 QTc: 424 Interpretive Statements SINUS RHYTHM POSSIBLE ANTERIOR MYOCARDIAL INFARCTION , OF INDETERMINATE AGE [30 ms Q WAVE IN V3/V4, OR R < 0.2 mV IN V4] Compared to ECG 11/18/2021 18:00:46 No significant changes Electronically Signed On 11-19-2021 8:07:22 CDT by Manuela River M.D. [id number]
[2021-11-18 21:09] LABS: Troponin 5 2HR 8.79 ng/L (0-10)
[2021-11-18 21:34] LABS: Troponin 5 2HR Delta -0.21 ABS# (0-10)
[2021-11-18 21:51] VITALS: O2SAT 92; O2SAT 94
[2021-11-18] MEDS: azithromycin 250 mg Tablet 500 MG PO (22:31)
[2021-11-18 22:44] VITALS: BP 145/93; PULSE 86; RESP 16; O2SAT 93
[2021-11-18 22:47] LABS: Adenovirus Not Detected (NOT DETECT); Chlamydia Pneumoniae Not Detected (NOT DETECT); Coronavirus 229E,HKU1,NL63,OC4 Not Detected (NOT DETECT); Human Metapneumovirus Not Detected (NOT DETECT); Human Rhinovirus/Enterovirus Detected (NOT DETECT); Influenza A Not Detected (NOT DETECT); Influenza A H1 Not Detected (NOT DETECT); Influenza A H1-2009 Not Detected (NOT DETECT); Influenza A H3 Not Detected (NOT DETECT); Influenza B Not Detected (NOT DETECT); Mycoplasma Pneumoniae Not Detected (NOT DETECT); Parainfluenza Virus Type 1 Not Detected (NOT DETECT); Parainfluenza Virus Type 2 Not Detected (NOT DETECT); Parainfluenza Virus Type 3 Not Detected (NOT DETECT); Parainfluenza Virus Type 4 Not Detected (NOT DETECT); Respiratory Syncytial Virus A Not Detected (NOT DETECT); Respiratory Syncytial Virus B Not Detected (NOT DETECT); SARS-COV-2 Not Detected (NOT DETECT)
[2021-11-18 23:00] LABS: Human Metapneumovirus Not Detected (NOT DETECT); Human Rhinovirus/Enterovirus Detected (NOT DETECT); Results from Genmark
== END 2021-11-18 22:46 | disposition home or self-care (01) ==
PROVIDERS: Emergency Provider Physician Assistant; PCP Family Medicine
DX: R06.02 Shortness of breath (principal); F17.210 Nicotine dependence, cigarettes, uncomplicated; Z20.822 Contact with and (suspected) exposure to COVID-19
CPT/HCPCS: 71045; 71275; 80053; 84484; 85025; 85378; 87635; 87801; 93005; 96374; 96375; 99285; J2270; J2405; Q0144; Q9967

== ENCOUNTER 2022-03-02 13:57 | Emergency (ER) | payer BC, MEDICAID, SELFPAY ==
[2022-03-02 14:13] VITALS: BP 143/81; PULSE 117; RESP 22; TEMP 37.2; O2SAT 96
--- NOTE | 2022-03-02 14:36 | ECG_ITS ---
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 Measurements Intervals [place] Rate: 108 P: 38 TX: 142 QRS: 53 QRSD: 92 T: 50 QT: 319 QTc: 429 Interpretive Statements SINUS TACHYCARDIA INCOMPLETE RIGHT BUNDLE BRANCH BLOCK [90+ ms QRS DURATION, TERMINAL R IN V1/V2, 40+ ms S IN I/aVL/V4/V5/V6] Compared to ECG 11/18/2021 19:29:36 Incomplete right bundle-branch block now present Sinus rhythm no longer present Myocardial infarct finding no longer present Electronically Signed On 03-03-2022 19:46:05 [employer] by Charly Quezada M.D. [id number]
--- NOTE | 2022-03-02 16:28 | ED_ITS ---
HPI - Abdominal Pain General: Chief Complaint: Abdominal Pain Stated Complaint: abd/shoulder pains Time Seen by Provider: 03/02/22 16:16 Source: patient Mode of arrival: ambulatory History of Present Illness: 31-year-old female presents emergency room with complaints of right flank pain that radiates up her right back into her right shoulder. She denies any dysuria urgency or frequency no nausea or vomiting is pain in the right upper quadrant of her abdomen as well. She has had a slight nonproductive cough and a low-grade fever. She does have a mild fever on arrival here. No dysuria urgency or frequency no history of any biliary colic or cholecystitis that she is aware of. MD elicited complaint: abdominal pain Pertinent past history: none Onset (ago): minute(s) Pain Consistency: constant Location: None Quality: cramping and stabbing Radiation: other (Right shoulder) Exacerbating factors: nothing Relieving factors: nothing Associated Symptoms: Reports bloating and GI cramping; Denies anorexia, belching, change in bowel habits, change in stool character, chills, coffee ground emesis, constipation, diarrhea, dyspepsia, dysuria, exc essive flatus, fever(s), heartburn, hematochezia, hematuria, hematemesis, fecal incontinence, loose stools, melena, nausea, poor appetite, syncope and vomiting Related Data: Date of Last Menstrual Period: 10/02/20 Review of Systems Const: Denies: fever(s), chills, fatigue or malaise ENMT: Denies: throat pain, ear or mastoid pain, nasal discharge or nasal congestion Card: Denies: syncope Resp: Denies: dyspnea, productive cough or non-productive cough GI: Reports: abdominal pain, bloating and GI cramping; Denies: nausea, vomiting, hematemesis, coffee ground emesis, heartburn, diarrhea, constipation, belching, excessive flatus, fecal incontinence, change in bowel habits, change in stool character, hematochezia or melena : Denies: dysuria, urinary frequency, urinary urgency or hematuria Skin/Breast: Denies: rash or pruritus PFSH ED PFSH: Medical History No pertinent family history Surgical History History of Social History Smoking and tobacco status: current every day smoker Female Reproductive History: Date of last menstrual period: 10/02/20 Physical Exam Const: GENERAL APPEARANCE: cooperative and comfortable ORIENTATION/CONSCIOUSNESS: Yes awake, Yes oriented to person, Yes oriented to place and Yes oriented to time HENMT: COMMON NORMALS: normocephalic, atraumatic and hearing grossly normal bilaterally HEAD & SCALP: normocephalic and atraumatic Resp: COMMON NORMALS: normal respiratory effort, No retractions, No use of accessory muscles and clear to auscultation bilaterally AUSCULTATION: clear to auscultation bilaterally Cardio: COMMON NORMALS: regular rate, regular rhythm and No murmurs present (Cardio) RATE: regular rate RHYTHM: regular rhythm GI: COMMON NORMALS: Soft to palpation and No hepatosplenomegaly present AUSCULTATION: Yes normoactive bowel sounds PALPATION: Yes Soft to palpation, Yes Tenderness to palpation present (GI) Details: RUQ, No Guarding due to palpation present (GI) and Yes No hepatosplenomegaly present Extremity: COMMON NORMALS: normal to inspection, capillary refill normal, no clubbing, cyanosis or edema, no calf tenderness and no pedal edema Neuro: SENSORIUM/ORIENTATION: Yes oriented to person, Yes oriented to place and Yes oriented to time Skin: COMMON NORMALS: no rashes or lesions noted GENERAL SKIN EXAM: no rashes or lesions noted Course 2 Vital Signs: Vital signs: Vital Signs Temperature 99.0 F 03/02/22 14:13 Pulse Rate 96 03/02/22 18:58 Respiratory Rate 22 H 03/02/22 17:28 Blood Pressure 120/68 03/02/22 18:58 Pulse Oximetry 96 03/02/22 18:58 Oxygen Delivery Me thod 03/02/22 17:00 MDM - Abdominal Pain Medical Decision Making Imaging shows question of right lower lobe pneumonia. May be that she has a pneumonia that settling on the diaphragm is causing a lot of right upper quadrant pain as well. Incidentally she does have some gallstones but there is no evidence of acute cholecystitis. Some of her pain could very well be from biliary colic. At this point with a low-grade fever normal liver enzymes were to go and treat her as if this is secondary to a pneumonia. She certainly does have an elevated white count that if this were from her gallbladder I would expect at least some slight elevation in her transaminases of which there is none. Discussed this with the patient recommend she do a course of antibiotics if she is not improving or has recurrence of symptoms follow-up with her primary care doctor for referral for further evaluation on biliary colic. Medical Records I reviewed the patient's medical records. Lab Data I reviewed the patient's lab results. 03/02/22 16:30 03/02/22 16:30 Labs/Radiology: Radiology Impressions Chest X-Ray 03/02/22 16:28 IMPRESSION: Left hilar to lower lobe atelectasis versus minimal infiltrate. Gallbladder Ultrasound 03/02/22 16:37 IMPRESSION: 1. Cholelithiasis, negative for cholecystitis. 2. Hepatic steatosis. Laboratory Results WBC 20.3 10^3/uL (4.0-10.0) H 03/02/22 16:30 RBC 5.23 10^6/uL (4.1-5.3) 03/02/22 16:30 Hgb 13.7 g/dL (11.5-15.3) 03/02/22 16:30 Hct 43.0 % (37.0-47.0) 03/02/22 16:30 MCV 82.2 fl (81-99) 03/02/22 16:30 MCH 26.2 pg (28.0-34.0) L 03/02/22 16:30 MCHC 31.9 g/dL (30.0-36.0) 03/02/22 16:30 RDW 15.1 % (12.1-15.1) 03/02/22 16:30 Plt Count 520 10^3/cmm (130-400) H 03/02/22 16:30 MPV 8.8 fL (7.4-10.4) 03/02/22 16:30 Neut % (Auto) 82.1 % 03/02/22 16:30 Lymph % (Auto) 11.0 % 03/02/22 16:30 [place] % (Auto) 5.6 % 03/02/22 16:30 Eos % (Auto) 0.6 % 03/02/22 16:30 Baso % (Auto) 0.1 % 03/02/22 16:30 Neut # (Auto) 16.66 10^3/uL (1.8-7.7) H 03/02/22 16:30 Lymph # (Auto) 2.2 10^3/uL (0.8-4.8) 03/02/22 16:30 [place] # (Auto) 1.1 10^3/uL (0.2-0.9) H 03/02/22 16:30 Eos # (Auto) 0.1 10^3/uL (0.0-0.8) 03/02/22 16:30 Baso # (Auto) 0.0 10^3/uL (0.0-0.1) 03/02/22 16:30 Nucleated RBC % (auto) 0 % 03/02/22 16:30 Nucleated RBCs # 0.0 /100WBC 03/02/22 16:30 Sodium 133 mmol/L (136-145) L 03/02/22 16:30 Potassium 3.9 mmol/L (3.5-5.1) 03/02/22 16:30 Chloride 100 mmol/L (98-107) 03/02/22 16:30 Carbon Dioxide 20 mmol/L (22-29) L 03/02/22 16:30 Anion Gap 16.9 (5-19) 03/02/22 16:30 BUN 10 mg/dL (6-20) 03/02/22 16:30 Creatinine 0.5 mg/dL (0.5-0.9) 03/02/22 16:30 GFR Calculation 144.9 mL/min (90-130) H 03/02/22 16:30 Glucose 97 mg/dL (65-115) 03/02/22 16:30 Calculated Osmolality 275 mOsm/kg (285-295) L 03/02/22 16:30 Calcium 9.7 mg/dL (8.5-10.5) 03/02/22 16:30 Total Bilirubin 0.2 mg/dL (0.15-1.2) 03/02/22 16:30 AST 12 U/L (0-32) 03/02/22 16:30 ALT 14 U/L (0-33) 03/02/22 16:30 Alkaline Phosphatase 99 U/L (35-105) 03/02/22 16:30 Total Protein 8.2 g/dL (6.6-8.7) 03/02/22 16:30 Albumin 3.9 g/dL (3.5-5.2) 03/02/22 16:30 Globulin 4.3 g/dL (1.3-4.6) 03/02/22 16:30 Lipase 13 U/L (13-60) 03/02/22 16:30 HCG, Qual Negative (Negative) 03/02/22 16:25 Urine Color Yellow (Yellow) 03/02/22 16:25 Urine Appearance Clear (CLEAR) 03/02/22 16:25 Urine pH 5 (5-7) 03/02/22 16:25 Ur Specific [place] 1.015 (1.005-1.030) 03/02/22 16:25 Urine Protein Trace (Negative) 03/02/22 16:25 Urine Glucose (UA) Norm (Normal) 03/02/22 16:25 Urine Ketones 1+ (Negative) H 03/02/22 16:25 Urine Blood 3+ (Negative) H 03/02/22 16:25 Urine Nitrate Negative (Negative) 03/02/22 16:25 Urine Bilirubin Neg (Negative) 03/02/22 16:25 Urine Urobilinogen Norm mg/dL (Negative) 03/02/22 16:25 Ur Leukocyte Esterase Negative (Negative) 03/02/22 16:25 Urine RBC 5-10 /hpf (0-2) H 03/02/22 16:25 Urine WBC Rare /hpf (0-5) 03/02/22 16:25 Ur Squamous Epith Cells 10-15 /hpf (0-5) H 03/02/22 16:25 Amorphous Sediment Not Reportable 03/02/22 16:25 Urine Bacteria 1+ /hpf (NONE) H 03/02/22 16:25 Discharge Plan Discharge Patient Disposition: Home Clinical Impression: Pneumonia, Biliary colic Condition: Stable Prescriptions: New doxycycline hyclate 100 mg tablet 100 mg PO BID 7 Days Qty: 14 0RF Continued albuterol sulfate 90 mcg/actuation HFA aerosol inhaler 2 inh inhalation Q6H PRN (Reason: shortness of breath or wheezing) Qty: 8.5 0RF No Action PNV [id number] fumarate-FA [] 28 mg iron- 800 mcg Tablet 1 tab PO DAILY ibuprofen 800 mg Tablet 800 mg PO TID Qty: 45 0RF hydrocodone-acetaminophen 5-325 mg Tablet 1 tab PO Q6H PRN (Reason: Moderate To Severe Pain) Qty: 28 0RF docusate sodium 100 mg Capsule 100 mg PO BID Qty: 14 0RF Discharge Orders: Discharge ED (Routine); Ordered 03/02/22 Ordered By: Kristopher King Referrals: Rafy Klein MD [Primary Care Provider] - Discharge Diet: Usual diet Discharge Activity: Resume usual activity Patient Instructions: Abdominal Pain (ED), Opioid Safety, Pain Management Activity Restrictions/Additional Instructions: You were seen in the emergency room for right-sided pain. You have a small pneumonia at the base of your right lung. Additionally you do have gallstones although they do not seem to be inflaming or irritating the gallbladder at this time. You were given antibiotics to treat your pneumonia if the right-sided pain persists or recurs follow-up with your primary care doctor for further evaluation and possible referral to general surgery. Coding Level of Care Code ED Heading Maker for Zoila Fwd Exam Detailed
--- NOTE | 2022-03-02 16:28 | XRR_ITS ---
PROCEDURE INFORMATION: Exam: XR Chest Exam date and time: 03/02/2022 4:35 PM Age: 31 years old Clinical indication: Pain; Chest pressure; Additional info: Chest pain TECHNIQUE: Imaging protocol: Radiologic exam of the chest. Views: 1 view. COMPARISON: CR XR chest 1V portable [id number] 11/18/2021 5:41 PM FINDINGS: Lungs: Left hilar to lower lobe atelectasis versus minimal infiltrate. Pleural spaces: Unremarkable. No pleural effusion. No pneumothorax. Heart/Mediastinum: Unremarkable. No cardiomegaly. Bones/joints: Unremarkable. XR/XR chest 1V portable [id number] IMPRESSION: Left hilar to lower lobe atelectasis versus minimal infiltrate.
--- NOTE | 2022-03-02 16:37 | USR_ITS ---
PROCEDURE INFORMATION: Exam: US Abdomen, Limited; Right Upper Quadrant Exam date and time: 03/02/2022 5:42 PM Age: 31 years old Clinical indication: Abdominal pain; Acute; Additional info: Ruq abd pain/positive murphies TECHNIQUE: Imaging protocol: Real time ultrasound of the abdomen with image documentation. Limited exam focused on the right upper quadrant. COMPARISON: US abdomen lmt trauma [id number] 03/06/2017 5:55 PM FINDINGS: Liver: Hepatic steatosis. Gallbladder: Cholelithiasis. Biliary ducts: Normal. No stones. No dilation. Pancreas: Visualized pancreas is unremarkable. Right kidney: Normal. No mass. No hydronephrosis. US/US gall bladder [id number] IMPRESSION: 1. Cholelithiasis, negative for cholecystitis. 2. Hepatic steatosis.
[2022-03-02 16:39] LABS: Basophils % 0.1 %; Eosinophils # 0.1 10^3/uL (0.0-0.8); Eosinophils % 0.6 %; Hemoglobin 13.7 g/dL (11.5-15.3); Lymphocytes # 2.2 10^3/uL (0.8-4.8); Mean Corpuscular HGB Conc 31.9 g/dL (30.0-36.0); Mean Corpuscular Hemoglobin 26.2 pg (28.0-34.0); Mean Corpuscular Volume 82.2 fl (81-99); Mean Platelet Volume 8.8 fL (7.4-10.4); Monocytes # 1.1 10^3/uL (0.2-0.9); Monocytes % 5.6 %; Neutrophils # 16.66 10^3/uL (1.8-7.7); Neutrophils % 82.1 %; Nucleated Red Blood Cells % 0 %; Platelet Count 520 10^3/cmm (130-400); Red Blood Count 5.23 10^6/uL (4.1-5.3); Red Cell Distribution Width 15.1 % (12.1-15.1); White Blood Count 20.3 10^3/uL (4.0-10.0)
[2022-03-02 16:40] LABS: HCG Qualitative Urine. Negative (Negative)
[2022-03-02 16:45] LABS: Glucose Urine UA Norm (Normal); Ketones Urine 1+ (Negative); Protein Urine Trace (Negative); Specific Gravity, Urine 1.015 (1.005-1.030); Urine Appearance Clear (CLEAR); Urine Color Yellow (Yellow); pH Urine 5 (5-7)
[2022-03-02 16:46] LABS: Add Urine Culture? No; Add Urine Microscopic? YES; Bacteria Urine 1+ /hpf; Bilirubin Urine Neg (Negative); Blood Urine 3+ (Negative); Leukocyte Esterase Urine Negative (Negative); Nitrate Urine Negative (Negative); Urobilinogen Urine Norm (Negative); WBC Urine RARE /hpf (0-5)
[2022-03-02 16:47] VITALS: BP 128/80; PULSE 100; RESP 18; O2SAT 98
[2022-03-02 16:54] LABS: Alanine Aminotransferase 14 U/L (0-33); Albumin Level 3.9 g/dL (3.5-5.2); Alkaline Phosphatase 99 U/L (35-105); Anion Gap 16.9 (5-19); Aspartate Amino Transferase 12 U/L (0-32); Blood Urea Nitrogen 10 mg/dL (6-20); Calcium 9.7 mg/dL (8.5-10.5); Carbon Dioxide 20 mmol/L (22-29); Chloride 100 mmol/L (98-107); Globulin 4.3 g/dL (1.3-4.6); Glomerular Filtration Rate 144.9 mL/min (90-130); Glucose 97 mg/dL (65-115); Lipase 13 U/L (13-60); Osmolality Calculated 275 mOsm/kg (285-295); Potassium 3.9 mmol/L (3.5-5.1); Sodium 133 mmol/L (136-145); Total Bilirubin 0.2 mg/dL (0.15-1.2); Total Protein 8.2 g/dL (6.6-8.7)
[2022-03-02 17:00] VITALS: BP 123/89; PULSE 95; RESP 20; O2SAT 96
[2022-03-02] MEDS: ondansetron 2 mg/ML SDV 2 mL 4 MG IVP (17:27)
[2022-03-02 17:28] VITALS: RESP 22; O2SAT 97
[2022-03-02] MEDS: morphine 4 mg/mL SDV 1 mL IVP (17:28)
[2022-03-02 18:58] VITALS: BP 120/68; PULSE 96; O2SAT 96
== END 2022-03-02 18:55 | disposition home or self-care (01) ==
PROVIDERS: Emergency Medicine; Emergency Provider Family Medicine; PCP Family Medicine
DX: J18.9 Pneumonia, unspecified organism (principal); K80.20 Calculus of gallbladder without cholecystitis without obstruction; F17.210 Nicotine dependence, cigarettes, uncomplicated
CPT/HCPCS: 71045; 76705; 80053; 81001; 81025; 83690; 85025; 93005; 96374; 96375; 99285; J2270; J2405